=== PATIENT | male | born 1980 | race Caucasian/White ===

== ENCOUNTER 2024-11-09 22:12 | Emergency (ER) | payer OTHER, SELFPAY ==
--- OUTSIDE RECORDS SUMMARY | 2024-11-09 22:14 | XMS REPORT | Continuity of Care Document ---
Author Name Unknown Address [address] [facility] [address] [place] [address] [facility] Address [address] [facility] [address] [place] [address] Care Team Providers Care Outside Sales Representative Insurance Name Role Phone PCP, PATIENT DOES NOT HAVE A Primary Care Physic rima Unavailable Only, Ang Db Test Attending Clinician Unavailabl e Rowan Mondragon Attending Clinician [phone] ROWAN BRODERICK Attending Clinician Unavailab le Doctor Unassigned, [place] Attending Clinician U navailable Allergies, Adverse Reactions, Alerts Allergy Name Allergy Type Status Severity Reaction(s) Onset Date Inactive Date Treating Clinician Comments Source NO KNOWN ALLERGIE S Drug Class Active [facility] Social History Social Habit Start Date Stop Date Quantity Comments Source Exposure to SARS-CoV-2 (event) Yes [facility] Sex Assigned At 1980 00:00:00 1980 00:00:00 [facility] Smoking Status Start Date Stop Date Source Unknown if ever smoked [facility] Procedures Procedure Date / Time Performed Performing Clinicia n Source CONSENT/REFUSAL FOR DIAGNOSIS AND TREATMENT 2021-11-16 22:26:34 Doctor Unassigned, [place] [facility] Encounters Start Date/Time End Date/Time Encounter Type Admission Type Attending Clinicians Care Facility Care Department Encounter ID Source 2021-11-17 10:30:00 2021-11-17 10:30:00 Outpatient R [facility] [id number] [facility] 2021-11-16 20:30:00 2021-11-16 20:45:00 Laboratory Only Only, Ang Db Test Rowan Broderick [facility] 1..[id number] [facility] 2021-11-16 20:30:00 2021-11-16 20:30:00 Outpatient R ROWAN BRODERICK [facility] [id number] [facility] 2021-11-16 00:00:00 2021-11-16 00:00:00 Orders Only Doctor Unassigned, [place] [facility] 1..840.114 [id number] [facility]
[2024-11-09] MEDS ORDERED: LORazepam 2 MG/ML VIAL ONE (22:34)
[2024-11-09] MEDS ORDERED: ONDANSETRON 4 MG/2 ML VIAL ONE (22:35)
--- NOTE | 2024-11-09 22:43 | RAD REPORT ---
EXAMINATION: ONE VIEW CHEST XR CLINICAL INDICATION: Male, 44 years old.,DYSPNEA TECHNIQUE: Frontal chest projection is submitted. Examination is limited by patient positioning and t echnique. COMPARISON: 07/15/2016 FINDINGS: The lungs are well inflated and clear. No pneumothorax or sizable effusion. The heart is normal in s ize. Mediastinal contours are unremarkable. IMPRESSION: No acute intrathoracic abnormalities.
[2024-11-09 22:59] LABS: Absolute Basophils 0.1 K/uL (0-0.5); Absolute Eosinophils 0.4 K/uL (0-0.5); Absolute Lymphocytes (CBC) 3.4 K/uL (0.7-4.9); Absolute Monocytes 0.8 K/uL (0.1-1.3); Absolute Neutrophil 7.2 K/uL (1.8-8.0); Basophils % 0.8 % (0-1.3); Hematocrit 44.7 % (39.6-49.0); Hemoglobin 15.5 g/dL (13.6-17.9); Lymphocytes % 29.1 % (15.3-44.8); MCHC 34.7 g/dL (32.0-36.0); MCV 86.4 fL (80-100); MPV 7.5 fL (7.6-11.3); Monocytes % 6.5 % (3.3-12.3); Neutrophils % 60.6 % (41.7-73.7); Platelets 338 thou/uL (152-406); RBC Red Blood Cell Count 5.17 M/uL (4.33-5.43); Red Cell Distribution Width 14.2 % (12.1-15.2)
[2024-11-09 23:13] LABS: Anion Gap 9.4 mEq/L (5.0-15.0); Troponin High Sensitivity 13.9 pg/mL (<58.9)
[2024-11-09 23:15] LABS: SARS-CoV-2 Antigen CONTROL BLUE LINE VIS/BG OK; SARS-CoV-2 Antigen Rapid Res Negative (Negative)
[2024-11-09 23:16] LABS: Potassium 3.4 mEq/L (3.5-5.1)
[2024-11-09] MEDS ORDERED: DIPHENHYDRAMINE 50 MG/ML VIAL ONE (23:41)
[2024-11-09] MEDS ORDERED: FAMOTIDINE 20 MG/2 ML VIAL IV ONE (23:41)
[2024-11-09] MEDS ORDERED: METHYLPREDNISOLONE 125 MG INJ ONE (23:41)
--- NOTE | 2024-11-10 00:20 | EDPHYS ---
Physician Documentation [facility] Name: Kory Her Age: 44 yrs Sex: Male : 1980 Arrival Date: 11/09/2024 Time: 22:12 Bed 5 Private MD: ED Physician Victor Hugo Márquez HPI: 11/09 23:58 This 44 yrs old Male presents to ER via Ambulatory with complaints of Shortness Of kb Breath, Chest Tightness. 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 Pt is very anxious at time of arrival. States he has a history of hypertension and took his medication this morning as usual. Denies chest pain. and son have the flu. Historical: - Allergies: 22:27 No Known Allergies; br2 - PMHx: 22:27 Atrial Fib; Hypertension; br2 - Immunization history:: Adult Immunizations not up to date. - Infectious Disease History:: Denies. - Social history:: Smoking status: Patient reports the use of cigarette tobacco products, 2 PER DAY. ROS: 23:57 Constitutional: As per HPI kb Exam: 22:50 Head/Face: Normocephalic, atraumatic. ENT: Moist Mucous membranes Cardiovascular: kb Regular rate Respiratory: Respirations even and unlabored. No increased work of breathing. Talking in full sentences Abdomen/GI: Soft, non-tender. No distention Skin: Warm, dry with normal turgor. Normal color. MS/ Extremity: Pulses equal, no cyanosis. Neurovascular intact. Full, normal range of motion. Neuro: Awake and alert, GCS 15, oriented to person, place, time, and situation. 22:50 Constitutional: The patient appears alert, awake, anxious, 22:50 ECG was reviewed by the Attending Physician. Vital Signs: 22:24 BP 195 / 120; Pulse 81; Resp 22; Temp 98.4(TE); Pulse Ox 100% on R/A; Weight 102.06 kg; br2 Height 6 ft. 2 in. ; Pain 0/10; 22:30 BP 143 / 110; Pulse 85; Resp 15; Pulse Ox 100% on R/A; al5 22:45 BP 157 / 92; Pulse 70; Resp 17; Pulse Ox 100% on R/A; al5 23:00 BP 147 / 90; Pulse 71; Resp 16; Pulse Ox 95% on R/A; al5 23:15 BP 153 / 95; Pulse 78; Resp 18; Pulse Ox 97% on R/A; al5 13 00:29 BP 143 / 91; Pulse 81; Resp 16; Pulse Ox 100% on R/A; al5 11/09 22:24 Body Mass Index 28.89 (102.06 kg, 187.96 cm) br2 11/09 22:24 Pain Scale: Adult br2 MDM: 11/09 22:13 Medical Screening Exam initiated kb 23:57 Data reviewed: vital signs, nurses notes. kb 23:58 Differential diagnosis: Anxiety Reaction Myocardial Infarction flu, covid, allergic kb reaction. 23:58 ED course: Pt is more calm, blood pressure improved after ativan. Was able to ask pt kb more questions. He did eat new pizza and some tuna from a deli he hasn't been to before so it is possible that he is having an allergic reaction. States the shortness of breath is better, but he still feels like he has tightness in his throat. . 11/10 00:18 Historians other than the Patient: Parent: father. Counseling: I had a detailed kb discussion with the patient and/or guardian regarding the historical points, exam findings, and any diagnostic results supporting the discharge/admit diagnosis, lab results, radiology results, the need for outpatient follow up, a family practitioner, to return to the emergency department if symptoms worsen or persist or if there are any questions or concerns that arise at home. 00:20 ED course: Symptoms resolved after treatment. kb 11/09 22:19 Order name: Flu; Complete Time: 23:14 kb 11/09 22:19 Order name: SARS-COV-2 Antigen Rapid; Complete Time: 23:21 kb 11/09 22:19 Order name: Strep kb 11/09 22:19 Order name: Basic Metabolic Panel; Complete Time: 23:21 kb 11/09 22:19 Order name: CBC with Diff; Complete Time: 23:05 kb 11/09 22:19 Order name: NT PRO-BNP; Complete Time: 23:21 kb 11/09 22:19 Order name: Troponin HS; Complete Time: 23:21 kb 11/09 22:36 Order name: Glucose, Ancillary Testing; Complete Time: 22:40 EDMS 11/09 23:17 Order name: Throat Culture EDMS 11/09 22:19 Order name: XRAY Chest (1 view); Complete Time: 22:44 kb 11/09 22:19 Order name: Cardiac monitoring; Complete Time: 22:39 kb 11/09 22:19 Order name: EKG - Nurse/Tech; Complete Time: 22:35 kb 11/09 22:19 Order name: IV Saline Lock; Complete Time: 22:31 kb 11/09 22:19 Order name: Labs collected and sent; Complete Time: 22:31 kb 11/09 22:19 Order name: O2 Per Protocol; Complete Time: 22:27 kb 11/09 22:19 Order name: O2 Sat Monitoring; Complete Time: 22:31 kb EC/12 22:50 Rate is 73 beats/min. Rhythm is regular. QRS [place] is Normal. ID interval is normal at kb 184 msec. QRS interval is normal at 98 msec. QT interval is normal at 451 msec. Administered Medications: 22:39 Drug: Ativan IVP 0.5 mg IVP once Route: IVP; Site: right antecubital; al5 23:18 Follow up: Response: No adverse reaction; Anxiety decreased al5 22:39 Drug: Ondansetron IVP 4 mg IVP once; over 2 minutes Route: IVP; Site: right antecubital;al5 23:18 Follow up: Response: No adverse reaction; Nausea is decreased al5 23:52 Drug: diphenhydrAMINE IVP 12.5 mg IVP once Route: IVP; Site: right antecubital; al5 11/10 00:29 Follow up: Response: No adverse reaction; Marked relief of symptoms al5 11/09 23:52 Drug: Famotidine IVP 20 mg IVP once; dilute with 10 mL 0.9% NaCl; give over 2 minutes al5 Route: IVP; Site: right antecubital; 11/10 00:29 Follow up: Response: No adverse reaction; Marked relief of symptoms al5 11/09 23:53 Drug: MethylPrednisoLONE IVP 125 mg IVP once Route: IVP; Site: right antecubital; al5 11/10 00:29 Follow up: Response: No adverse reaction; Marked relief of symptoms al5 Point of Care Testing: Blood Glucose: 11/09 22:27 Blood Glucose: 80 mg/dL; br2 Ranges: Critical Glucose Levels:Adult <50 mg/dl or >400 mg/dl <40 mg/dl or >180 mg/dl Disposition Summary: 11/10/24 00:19 Discharge Ordered Notes: Location: Home kb Condition: Stable kb Diagnosis - Dyspnea kb - Allergic reaction kb Followup: kb - With: Emergency Department - When: As needed - Reason: Worsening of condition Followup: kb - With: Private Physician - When: 2 - 3 days - Reason: Recheck today's complaints, Continuance of care, Re-evaluation by your physician Discharge Instructions: - Discharge Summary Sheet kb - Panic Attack, [id number] kb - Allergies, Adult, [id number] kb Forms: - Medication Reconciliation Form kb - Antibiotic Education kb - Prescription Opioid Use kb - Patient Portal Instructions kb - Leadership Thank You Letter kb Prescriptions: - Hydroxyzine HCl 25 mg Oral tablet - take 1 tablet ORAL route every 8 hours As needed; 12 tablet; Refills: 0, kb Product Selection Permitted - Pepcid 20 mg Oral Tablet - take 1 tablet ORAL route every 12 hours for 5 days; 10 tablet; Refills: 0, kb Product Selection Permitted - Prednisone 20 mg Oral Tablet - take 1 tablet ORAL route once daily for 5 days; 5 tablet; Refills: 0, Product kb Selection Permitted Addendum: 11/17/2024 09:12 I was immediately available for consultation during this patient's visit. I did not e c2 personally see the patient or discuss the patient with the ALICIA. . Signatures: Dispatcher [employer] EDWI Maria Guadalupe Markham, DIRECTOR OF MEDICARE-C DIRECTOR OF MEDICARE-CkKerri Benitez, RICHARD RN lg3 Victor Hugo Márquez MD MD ec2 Roseline Gonzales RN RN al5 Bharati Leo RN RN br2 Corrections: (The following items were deleted from the chart) 11/09 22:20 22:20 Influenza Screen (A \T\ B)+BA.LAB.BRZ ordered. EDWI EDMS 22:20 22:20 SARS-COV-2 Antigen Rapid+I.LAB.BRZ ordered. EDWI EDMS 22:20 22:20 Group A Streptococcus Rapid Sc+BA.LAB.BRZ ordered. EDWI EDMS 22:20 22:20 BASIC METABOLIC PANEL+C.LAB.BRZ ordered. EDMS EDMS 22:20 22:20 CBC+H.LAB.BRZ ordered. EDMS EDMS 22:20 22:20 PROBNP+C.LAB.BRZ ordered. EDMS EDMS 22:20 22:20 Troponin High Sensitivity+C.LAB.BRZ ordered. EDMS EDMS 22:20 22:20 Chest Single View+RAD.RAD.BRZ ordered. EDMS EDMS
--- NOTE | 2024-11-10 00:20 | ER ---
Nurse's Notes [facility] Name: Kory Her Age: 44 yrs Sex: Male : 1980 Arrival Date: 11/09/2024 Time: 22:12 Bed 5 Private MD: Diagnosis: Dyspnea;Allergic reaction Presentation: 11/09 22:24 Chief complaint: Patient states: SOB, COUGH WITH CHEST TIGHTNESS, FEELS LIKE THROAT IS br2 CLOSING UP. PT HAS FAMILY AT HOME WITH THE FLU. PT STATES HE ISN'T ALLERGIC TO ANY FOODS THAT HE IS AWARE OF. Coronavirus screen: Client denies travel out of the [place] in the last 14 days. Ebola Screen: Patient denies exposure to infectious person. Initial Sepsis Screen: Does the patient meet any 2 criteria? No. Patient's initial sepsis screen is negative. Does the patient have a suspected source of infection? No. Patient's initial sepsis screen is negative. Risk Assessment: Do you want to hurt yourself or someone else? Patient reports no desire to harm self or others. Onset of symptoms was November 09, 2024 at 21:00. 22:24 Method Of Arrival: Ambulatory br2 22:24 Acuity: JAMES 3 br2 Triage Assessment: 22:30 Respiratory: Onset: The symptoms/episode began/occurred suddenly, the patient has mild al5 shortness of breath. Historical: - Allergies: 22:27 No Known Allergies; br2 - PMHx: 22:27 Atrial Fib; Hypertension; br2 - Immunization history:: Adult Immunizations not up to date. - Infectious Disease History:: Denies. - Social history:: Smoking status: Patient reports the use of cigarette tobacco products, 2 PER DAY. Screenin:26 [facility] ED Fall Risk Assessment (Adult) History of falling in the last 3 months, al5 including since admission No falls in past 3 months (0 pts) Confusion or Disorientation No (0 pts) Intoxicated or Sedated No (0 pts) Impaired Gait No (0 pts) Mobility Assist Device Used No (0 pt) Altered Elimination No (0 pt) Score/Fall Risk Level 0 - 2 = Low Risk Oriented to surroundings, Maintained a safe environment, Hourly rounding (assess needs \T\ fall precautionary measures) done. Abuse screen: Denies threats or abuse. Denies injuries from another. Nutritional screening: No deficits noted. Tuberculosis screening: No symptoms or risk factors identified. Assessment: 22:26 General: Appears in no apparent distress. Behavior is cooperative, anxious. Pain: al5 Denies pain. Neuro: Level of Consciousness is awake, alert, obeys commands, Oriented to person, place, time, situation. Cardiovascular: Reports having chest pain initially, states he no longer has it, but is short of breath. Respiratory: Airway is patent Respiratory effort is even, Respiratory pattern is regular, symmetrical. Respiratory: Breath sounds are clear bilaterally. GI: Reports nausea. : No signs and/or symptoms were reported regarding the genitourinary system. EENT: No signs and/or symptoms were reported regarding the EENT system. Derm: Skin is intact, is healthy with good turgor, Skin is pink, warm \T\ dry. normal. Musculoskeletal: No signs and/or symptoms reported regarding the musculoskeletal system. 22:56 Cardiovascular: Rhythm is sinus rhythm. al5 11/10 00:29 Reassessment: Patient appears in no apparent distress at this time. Patient and/or al5 family updated on plan of care and expected duration. Pain level reassessed. Patient is alert, oriented x 3, equal unlabored respirations, skin warm/dry/pink. Patient states feeling better. Patient states symptoms have improved. Vital Signs: 11/09 22:24 BP 195 / 120; Pulse 81; Resp 22; Temp 98.4(TE); Pulse Ox 100% on R/A; Weight 102.06 kg; br2 Height 6 ft. 2 in. ; Pain 0/10; 22:30 BP 143 / 110; Pulse 85; Resp 15; Pulse Ox 100% on R/A; al5 22:45 BP 157 / 92; Pulse 70; Resp 17; Pulse Ox 100% on R/A; al5 23:00 BP 147 / 90; Pulse 71; Resp 16; Pulse Ox 95% on R/A; al5 23:15 BP 153 / 95; Pulse 78; Resp 18; Pulse Ox 97% on R/A; al5 11/10 00:29 BP 143 / 91; Pulse 81; Resp 16; Pulse Ox 100% on R/A; al5 11/09 22:24 Body Mass Index 28.89 (102.06 kg, 187.96 cm) br2 11/09 22:24 Pain Scale: Adult br2 ED Course: 11/09 22:12 Patient arrived in ED. ra3 22:13 Maria Guadalupe Markham FNP-C [facility] kb 22:13 Victor Hugo Márquez MD is Attending Physician. kb 22:25 Roseline Gonzales, RICHARD is Primary Nurse. al5 22:25 No provider procedures requiring assistance completed. Inserted saline lock: 20 gauge al5 in right antecubital area, using aseptic technique. Blood collected. Flushed with 10 mL NS. 22:26 Patient has correct armband on for positive identification. Bed in low position. Call al5 light in reach. Side rails up X 1. Provided Education on: plan of care. 22:27 Triage completed. br2 22:30 Patient placed in the treatment room, on a stretcher, on raw silk grader, on pulse al5 oximetry. 22:32 XRAY Chest (1 view) In Process Unspecified. EDMS 23:37 Throat Culture Sent. vk 11/10 00:29 IV discontinued, intact, bleeding controlled, No redness/swelling at site. Pressure al5 dressing applied. Administered Medications: 11/09 22:39 Drug: Ativan IVP 0.5 mg IVP once Route: IVP; Site: right antecubital; al5 23:18 Follow up: Response: No adverse reaction; Anxiety decreased al5 22:39 Drug: Ondansetron IVP 4 mg IVP once; over 2 minutes Route: IVP; Site: right antecubital;al5 23:18 Follow up: Response: No adverse reaction; Nausea is decreased al5 23:52 Drug: diphenhydrAMINE IVP 12.5 mg IVP once Route: IVP; Site: right antecubital; al5 11/10 00:29 Follow up: Response: No adverse reaction; Marked relief of symptoms al5 11/09 23:52 Drug: Famotidine IVP 20 mg IVP once; dilute with 10 mL 0.9% NaCl; give over 2 minutes al5 Route: IVP; Site: right antecubital; 11/10 00:29 Follow up: Response: No adverse reaction; Marked relief of symptoms al5 11/09 23:53 Drug: MethylPrednisoLONE IVP 125 mg IVP once Route: IVP; Site: right antecubital; al5 11/10 00:29 Follow up: Response: No adverse reaction; Marked relief of symptoms al5 Medication: 11/09 22:26 VIS not applicable for this client. al5 Point of Care Testing: Blood Glucose: 22:27 Blood Glucose: 80 mg/dL; br2 Ranges: Outcome: 11/10 00:19 Discharge ordered by . chema 00:30 Discharged to home ambulatory, with family, al5 00:30 Condition: good 00:30 Discharge instructions given to patient, family, Instructed on discharge instructions, follow up and referral plans. medication usage, Demonstrated understanding of instructions, follow-up care, medications, Prescriptions given X 3, 00:30 Patient left the ED. al5 Signatures: Dispatcher [employer] EDMS Maria Guadalupe Markham, LILIA-C CAN MAKER-Marilou Sheppard ra3 Michelle Cano Amanda, RN RN al5 Bharati Leo RN RN br2 Corrections: (The following items were deleted from the chart) 11/09 22:30 22:26 GI: No signs and/or symptoms were reported involving the gastrointestinal system. al5 al5
[2024-11-11 16:23] VITALS: BP 143/91; TEMP 98.4; O2SAT 100
--- NOTE | 2024-11-13 12:09 | EKG ---
Test Date: 2024-11-09 Test Time: 22:32:57 Experimental Assembler: JOSEPH MEASUREMENT RESULTS: Intervals: Rate: 73 [place]: 184 QRSD: 98 QT: 410 QTc: 451 [place]: P: 44 [place]: 184 QRS: 43 T: -2 INTERPRETIVE STATEMENTS: Normal sinus rhythm Nonspecific T wave abnormality Abnormal ECG Compared to ECG 11/12/2017 13:53:20 Possible ischemia no longer present T-wave abnormality still present Electronically Signed On 11-13-24 12:07:30 PV DESIGN ENGINEER by Liam Zuleta
== END 2024-11-10 00:30 | disposition home or self-care (01) ==
LOC: ER 22:12
DX: R06.00 Dyspnea, unspecified (principal); I10 Essential (primary) hypertension; Z72.0 Tobacco use
CPT/HCPCS: 36415; 71045; 80048; 82947; 83880; 84484; 85025; 87070; 87081; 87804; 87811; 93005; 96374; 96375; 99284; J1200; J2405; J2919

== ENCOUNTER 2024-11-22 07:46 | Emergency (ER) | payer SELFPAY ==
--- OUTSIDE RECORDS SUMMARY | 2024-11-22 07:50 | XMS REPORT | Continuity of Care Document ---
Author Name Unknown Address [address] [facility] [address] [place] [address] [facility] thconnect Address [address] [facility] [address] [place] [address] Care Team Providers Care Certified Wellness Program Manager Name Role Phone Pcp, Patient Does Not Have A Primary Care Physic rima ROWAN BRODERICK Attending Clinician Unavailab Rowan Meraz Attending Clinician [phone] Unknown, Attending Attending Clinician Unavailab celsa Only, Ang Db Test Attending Clinician Unavailabl e Rowan Mondragon Attending Clinician [phone] Doctor Unassigned, [place] Attending Clinician U navailable Problems Condition Name Condition Details Condition Category Status Onset Date Resolution Date Last Treatment Date Treating Clinician Comments Source HTN (hypertens ion) HTN (hypertens ion) Disease Active 11-11 00:00: 00 [facility] Allergies, Adverse Reactions, Alerts Allergy Name Allergy Type Status Severity Reaction(s) Onset Date Inactive Date Treating Clinician Comments Source NO KNOWN ALLERGIE S Drug Class Active [facility] Social History Social Habit Start Date Stop Date Quantity Comments Source Sexual orientation U [facility] Exposure to SARS-CoV-2 (event) Yes [facility] Sex assigned at 1980 00:00:00 1980 00:00:00 [facility] Smoking Status Start Date Stop Date Source Tobacco smoking consumption unknown [facility] Medications Ordered Medication Name Filled Medication Name Start Date Stop Date Current Medication? Ordering Clinician Indication Dosage Frequency Signature (SIG) Comments Components Source famotidine (PEPCID ORAL) 11-11 11:05: 22 Yes Take by mouth. [facility] benzonatate 200 mg capsule 11-11 00:00: 00 11-22 05:59 :00 Yes [id number] 200mg Take 1 capsule by mouth 3 (three) times daily as needed for Cough for up to 10 days. [facility] oseltamivir (TAMIFLU) 75 mg capsule 11-11 00:00: 00 11-17 05:59 :00 Yes [id number] 75mg Take 1 capsule by mouth in the morning and 1 capsule in the evening. Do all this for 5 days. [facility] Vital Signs Vital Name Observation Time Observation Value Comments S ource Systolic blood pressure 2024-11-11 16:53:00 146 mm[Hg] [facility] Diastolic blood pressure 2024-11-11 16:53:00 93 mm[Hg] [facility] Heart rate 2024-11-11 16:52:00 96 /min [facility] Body temperature 2024-11-11 16:52:00 38.17 Iva [facility] Respiratory rate 2024-11-11 16:52:00 18 /min [facility] Body height 2024-11-11 16:52:[address] [facility] Body weight 2024-11-11 16:52:[address] [facility] BMI 2024-11-11 16:52:00 30.65 kg/m2 [facility] Oxygen saturation in Arterial blood by Pulse oximetry 2024-11-11 16:52:00 99 /min [facility] Procedures Procedure Date / Time Performed Performing Clinicia n Source POCT MOLECULAR FLU 2024-11-11 16:52:00 Unknown, Attend ing [facility] CONSENT/REFUSAL FOR DIAGNOSIS AND TREATMENT 2021-11-16 22:26:34 Doctor Unassigned, [place] [facility] Encounters Start Date/Time End Date/Time Encounter Type Admission Type Attending [facility] Care Facility Care Department Encounter ID Source 2024-11-11 09:40:00 2024-11-11 11:11:22 Outpatient R ROWAN BRODERICK [facility] [id number] [facility] 2024-11-11 09:40:00 2024-11-11 11:11:22 Urgent Care Rowan Broderick Unknown, Attending [facility] [id number] [facility] 2021-11-17 10:30:00 2021-11-17 10:30:00 [facility] [id number] [facility] 2021-11-16 20:30:00 2021-11-16 20:45:00 Laboratory Only Only, Ang Db Test Rowan Broderick [facility] [id number] [facility] 2021-11-16 20:30:00 2021-11-16 20:30:00 Outpatient R ROWAN BRODERICK [facility] [id number] [facility] 2021-11-16 00:00:00 2021-11-16 00:00:00 Orders Only Doctor Unassigned, [place] [facility] [id number] [facility] Results Test Description Test Time Test Comments Results Result Co mments Source [facility]
[2024-11-22] MEDS ORDERED: MAGNES/ALUMIN/SIMET 30ML UCUP ONE (08:16)
[2024-11-22] MEDS ORDERED: DICYCLOMINE HCL 20 MG/2 ML AMP IM ONE (08:16)
[2024-11-22] MEDS ORDERED: ONDANSETRON 4 MG/2 ML VIAL ONE (08:16)
[2024-11-22] MEDS ORDERED: NA CHLORIDE 0.9% 1,000 ML ONE (08:17)
[2024-11-22] MEDS ORDERED: LIDOCAINE VISCOUS 2% 10ML ORAL SOLN ONE (08:17)
[2024-11-22] MEDS ORDERED: FAMOTIDINE 20 MG/2 ML VIAL IV ONE (08:17)
[2024-11-22 09:02] LABS: Absolute Basophils 0.1 K/uL (0-0.5); Absolute Eosinophils 0.2 K/uL (0-0.5); Absolute Lymphocytes (CBC) 2.6 K/uL (0.7-4.9); Absolute Monocytes 0.5 K/uL (0.1-1.3); Absolute Neutrophil 6.8 K/uL (1.8-8.0); Basophils % 0.5 % (0-1.3); Eosinophils % 2.1 % (0-4.4); Hematocrit 45.6 % (39.6-49.0); Hemoglobin 16.2 g/dL (13.6-17.9); Lymphocytes % 25.8 % (15.3-44.8); MCH 29.9 pg (27.0-35.0); MCHC 35.5 g/dL (32.0-36.0); MCV 84.2 fL (80-100); MPV 7.4 fL (7.6-11.3); Monocytes % 5.2 % (3.3-12.3); Neutrophils % 66.4 % (41.7-73.7); Nucleated Red Blood Cells % 0.1 % (0-0); Platelets 371 thou/uL (152-406); RBC Red Blood Cell Count 5.41 M/uL (4.33-5.43); Red Cell Distribution Width 14.2 % (12.1-15.2)
[2024-11-22 09:28] LABS: Albumin/Globulin Ratio 1.1 (1.1-1.8); Anion Gap 8.4 mEq/L (5.0-15.0); Bilirubin Total 1.1 mg/dL (0.2-1.0); Globulin 3.7 g/dL (2.3-3.5); Potassium 3.4 mEq/L (3.5-5.1); Protein, Total 7.7 g/dL (6.4-8.2)
--- NOTE | 2024-11-22 09:37 | ER ---
Nurse's Notes [facility] Name: Kory Her Age: 44 yrs Sex: Male : 1980 Arrival Date: 11/22/2024 Time: 07:46 Bed 7 Private MD: Diagnosis: Influenza;Viral syndrome;Nausea and vomiting Presentation: 11/22 08:05 Chief complaint: N/D, fever, cough, and congestion x 2 weeks, upper abdominal pain x 3 hb days. Diagnosed with flu A 10 days ago. Coronavirus screen: At this time, the client does not indicate any symptoms associated with coronavirus-19. Ebola Screen: No symptoms or risks identified at this time. Initial Sepsis Screen: Does the patient meet any 2 criteria? No. Patient's initial sepsis screen is negative. Does the patient have a suspected source of infection? No. Patient's initial sepsis screen is negative. Risk Assessment: Do you want to hurt yourself or someone else? Patient reports no desire to harm self or others. Onset of symptoms was November 08, 2024. 08:05 Method Of Arrival: Ambulatory hb 08:05 Acuity: JAMES 3 hb Historical: - Allergies: 08:07 No Known Allergies; hb - PMHx: 08:07 Atrial Fib; Hypertension; hb - Immunization history:: Adult Immunizations up to date. - Infectious Disease History:: Denies. - Social history:: Smoking status: Patient/guardian denies using tobacco, Stopped _ months ago 1. - Family history:: not pertinent. Screenin:29 [facility] ED Fall Risk Assessment (Adult) History of falling in the last 3 months, ko1 including since admission No falls in past 3 months (0 pts) Confusion or Disorientation No (0 pts) Intoxicated or Sedated No (0 pts) Impaired Gait No (0 pts) Mobility Assist Device Used No (0 pt) Altered Elimination No (0 pt) Score/Fall Risk Level 0 - 2 = Low Risk Oriented to surroundings, Maintained a safe environment, Educated pt \T\ family on fall prevention, incl call for assistance when getting out of bed, Assessed \T\ reinforced patient's understanding of fall precautions, Provided non-skid footwear, Hourly rounding (assess needs \T\ fall precautionary measures) done. Abuse screen: Denies threats or abuse. Denies injuries from another. Nutritional screening: No deficits noted. Tuberculosis screening: No symptoms or risk factors identified. Assessment: 08:29 General: Appears uncomfortable, Behavior is cooperative, appropriate for age. Pain: ko1 Complains of pain in abdomen. Neuro: No deficits noted. Cardiovascular: No deficits noted. Respiratory: No deficits noted. GI: Bowel sounds present X 4 quads. Abd is soft and non tender X 4 quads. Reports lower abdominal pain, bloating, diarrhea, gaseousness, indigestion, nausea. : No deficits noted. No signs and/or symptoms were reported regarding the genitourinary system. EENT: No deficits noted. No signs and/or symptoms were reported regarding the EENT system. Derm: No deficits noted. No signs and/or symptoms reported regarding the dermatologic system. Musculoskeletal: No deficits noted. No signs and/or symptoms reported regarding the musculoskeletal system. Vital Signs: 08:05 BP 184 / 109; Pulse 76; Resp 18; Temp 98(O); Pulse Ox 97% on R/A; Weight 104.33 kg; hb Height 6 ft. 2 in. ; Pain 6/10; 09:21 BP 149 / 100; Pulse 56; Resp 17; Pulse Ox 96% ; ko1 09:36 BP 152 / 98; Pulse 56; Resp 15; Pulse Ox 99% on R/A; ko1 08:05 Body Mass Index 29.53 (104.33 kg, 187.96 cm) hb 08:05 Pain Scale: Adult hb ED Course: 07:50 Patient arrived in ED. mr 07:53 Jeremy Arriola MD is Attending Physician. rt 08:02 Sarah Farr, RN is Primary Nurse. ko1 08:07 Triage completed. hb 08:07 Arm band placed on. hb 08:19 Initial lab(s) drawn, by me, sent to lab. Inserted saline lock: 20 gauge in right aa5 antecubital area, using aseptic technique. Blood collected. Flushed with 10 mL NS. 08:29 Patient has correct armband on for positive identification. Bed in low position. Call ko1 light in reach. Side rails up X 1. Provided Education on: labs, meds. Pulse ox on. NIBP on. Door closed. Noise minimized. Lights dimmed. Warm blanket given. Pillow given. 08:29 No provider procedures requiring assistance completed. ko1 09:27 Patient requests rest room assistance. ko1 09:27 Assisted with urinal. ko1 09:35 IV discontinued, intact, bleeding controlled, No redness/swelling at site. Pressure ko1 dressing applied. Administered Medications: 08:27 Drug: NS 0.9% IV 1000 ml IV at 1000 ml once; to be given as a bolus over 60 minutes ko1 Route: IV; Rate: 1000 ml; Site: right antecubital; 09:20 Follow up: Response: No adverse reaction; IV Status: Completed infusion; IV Intake: ko1 1000ml 08:27 Drug: Ondansetron IVP 4 mg IVP once; over 2 minutes Route: IVP; Site: right antecubital;ko1 08:42 Follow up: Response: No adverse reaction ko1 08:27 Drug: Dicyclomine IM 20 mg IM once Route: IM; Site: right deltoid; ko1 08:57 Follow up: Response: No adverse reaction ko1 08:28 Drug: GI Cocktail without - (Maalox PO 30 ml, Lidocaine Mucous Membrane 2 % 15 ko1 ml) PO once Route: PO; 08:58 Follow up: Response: No adverse reaction ko1 08:29 Drug: Famotidine IVP 20 mg IVP once; dilute with 10 mL 0.9% NaCl; give over 2 minutes ko1 Route: IVP; Site: right antecubital; 08:44 Follow up: Response: No adverse reaction ko1 Medication: 08:29 VIS not applicable for this client. ko1 Intake: 09:20 IV: 1000ml; Total: 1000ml. ko1 09:36 PO: 120ml (Water); IV: 1000ml; Total: 2120ml. ko1 Output: 09:36 Urine: 750ml (Voided); Total: 750ml. ko1 Outcome: 09:36 Discharge ordered by MD. rt 09:36 Discharged to home ambulatory, with family, ko1 09:36 Condition: stable 09:36 Discharge instructions given to patient, family, Instructed on discharge instructions, follow up and referral plans. medication usage, Demonstrated understanding of instructions, follow-up care, medications, Prescriptions given X 2, 09:44 Patient left the ED. ko1 Signatures: Domenica Yao, Reg Reg mr Jeannine Gallo, RN RN aa5 Evita Mireles RN RN Sarah Mendoza, RICHARD RN ko1 Jeremy Arriola MD MD rt
--- NOTE | 2024-11-22 09:37 | EDPHYS ---
Physician Documentation [facility] Name: Kory Her Age: 44 yrs Sex: Male : 1980 Arrival Date: 11/22/2024 Time: 07:46 Bed 7 Private MD: ED Physician Jeremy Arriola HPI: 11/22 10:21 This 44 yrs old Male presents to ER via Ambulatory with complaints of Abdominal Pain, rt Diarrhea, Dizziness. 10:21 Patient was diagnosed with flu a about 10 days ago. Patient states that for the past rt week, he has had nausea, vomiting, diarrhea, epigastric pain. Denies other acute complaints at this time, symptoms are moderate in severity, no other aggravating or alleviating factors.. Historical: - Allergies: 08:07 No Known Allergies; hb - PMHx: 08:07 Atrial Fib; Hypertension; hb - Immunization history:: Adult Immunizations up to date. - Infectious Disease History:: Denies. - Social history:: Smoking status: Patient/guardian denies using tobacco, Stopped _ months ago 1. - Family history:: not pertinent. ROS: 10:21 Cardiovascular: Negative for chest pain, palpitations, and edema, MS/Extremity: rt Negative for injury and deformity, Skin: Negative for injury, rash, and discoloration, Neuro: Negative for headache, weakness, numbness, tingling, and seizure, 10:21 Constitutional: Positive for body aches, malaise, 10:21 Respiratory: Positive for cough, Negative for shortness of breath, 10:21 Abdomen/GI: Positive for nausea, vomiting, and diarrhea, Exam: 10:21 Constitutional: This is a well developed, well nourished patient who is awake, alert, rt and in no acute distress. Head/Face: Normocephalic, atraumatic. Chest/axilla: Normal chest wall appearance and motion. Nontender with no deformity. No lesions are appreciated. Cardiovascular: Regular rate and rhythm with a normal S1 and S2. No gallops, murmurs, or rubs. Normal PMI, no JVD. No pulse deficits. Respiratory: Lungs have equal breath sounds bilaterally, clear to auscultation and percussion. No rales, rhonchi or wheezes noted. No increased work of breathing, no retractions or nasal flaring. MS/ Extremity: Pulses equal, no cyanosis. Neurovascular intact. Full, normal range of motion. Neuro: Awake and alert, GCS 15, oriented to person, place, time, and situation. Cranial nerves II-XII grossly intact. Motor strength 5/5 in all extremities. Sensory grossly intact. Cerebellar exam normal. Normal gait. 10:21 Abdomen/GI: No focal areas of abdominal tenderness, no rebound, guarding, distention, Vital Signs: 08:05 BP 184 / 109; Pulse 76; Resp 18; Temp 98(O); Pulse Ox 97% on R/A; Weight 104.33 kg; hb Height 6 ft. 2 in. ; Pain 6/10; 09:21 BP 149 / 100; Pulse 56; Resp 17; Pulse Ox 96% ; ko1 09:36 BP 152 / 98; Pulse 56; Resp 15; Pulse Ox 99% on R/A; ko1 08:05 Body Mass Index 29.53 (104.33 kg, 187.96 cm) hb 08:05 Pain Scale: Adult hb MDM: 08:05 Medical Screening Exam initiated rt 10:21 Differential diagnosis: Viral syndrome, gastritis. Data reviewed: vital signs, nurses rt notes, lab test result(s). I considered the following discharge prescriptions or medication management in the emergency department Medications were administered in the Emergency Department. See MAR. Test considered but Not performed: CT: No focal areas of abdominal tenderness or distention, symptoms significantly improving with treatment in the ED, low suspicion for acute surgical pathology such as appendicitis, cholecystitis, CT scan is not indicated. Care significantly affected by the following chronic conditions: Hypertension. Counseling: I had a detailed discussion with the patient and/or guardian regarding the historical points, exam findings, and any diagnostic results supporting the discharge/admit diagnosis, lab results, radiology results, the need for outpatient follow up, to return to the emergency department if symptoms worsen or persist or if there are any questions or concerns that arise at home. Response to treatment: the patient's symptoms have markedly improved after treatment. 11/22 08:13 Order name: CBC with Diff; Complete Time: rt 11/22 08:13 Order name: CMP; Complete Time: rt 11/22 08:13 Order name: Lipase; Complete Time: rt Administered Medications: : Drug: NS 0.9% IV 1000 ml IV at 1000 ml once; to be given as a bolus over 60 minutes ko1 Route: IV; Rate: 1000 ml; Site: right antecubital; 09:20 Follow up: Response: No adverse reaction; IV Status: Completed infusion; IV Intake: ko1 1000ml 08:27 Drug: Ondansetron IVP 4 mg IVP once; over 2 minutes Route: IVP; Site: right antecubital;ko1 08:42 Follow up: Response: No adverse reaction ko1 08:27 Drug: Dicyclomine IM 20 mg IM once Route: IM; Site: right deltoid; ko1 08:57 Follow up: Response: No adverse reaction ko1 08:28 Drug: GI Cocktail without - (Maalox PO 30 ml, Lidocaine Mucous Membrane 2 % 15 ko1 ml) PO once Route: PO; 08:58 Follow up: Response: No adverse reaction ko1 08:29 Drug: Famotidine IVP 20 mg IVP once; dilute with 10 mL 0.9% NaCl; give over 2 minutes ko1 Route: IVP; Site: right antecubital; 08:44 Follow up: Response: No adverse reaction ko1 Disposition Summary: 11/22/24 09:36 Discharge Ordered Notes: Location: Home rt Problem: new rt Symptoms: have improved rt Condition: Stable rt Diagnosis - Influenza rt - Viral syndrome rt - Nausea and vomiting rt Followup: rt - With: Private Physician - When: 2 - 3 days - Reason: Discharge Instructions: - Discharge Summary Sheet rt - Influenza, Adult rt - Nausea and Vomiting, Adult rt Forms: - Medication Reconciliation Form rt - Antibiotic Education rt - Prescription Opioid Use rt - Patient Portal Instructions rt - Leadership Thank You Letter rt Prescriptions: - ondansetron 4 mg Oral Tablet,disintegrating - take 1 tablet ORAL route every 6 hours as needed for nausea; 15 tablet; rt Refills: 0, Product Selection Permitted - dicyclomine 20 mg Oral tablet - take 1 tablet ORAL route 3 times per day as needed; 15 tablet; Refills: 0, rt Product Selection Permitted Signatures: Dispatcher [employer] Evita Jimenez RN RN hb Oliver, Kathy, RN RN ko1 Jeremy Arriola MD MD rt
[2024-11-22 10:02] VITALS: TEMP 98
[2024-11-22 10:09] VITALS: BP 152/98; O2SAT 99
== END 2024-11-22 09:44 | disposition home or self-care (01) ==
LOC: ER 07:46
DX: J11.1 Influenza due to unidentified influenza virus with other respiratory manifestations (principal)
CPT/HCPCS: 36415; 80053; 83690; 85025; 96361; 96372; 96374; 96375; 99284; J0500; J2405; J7030

== ENCOUNTER 2024-11-24 12:21 | Inpatient (IN) | payer SELFPAY ==
--- OUTSIDE RECORDS SUMMARY | 2024-11-24 12:24 | XMS REPORT | Continuity of Care Document ---
Author Name Unknown Address [address] [place] [address] [facility] thconnect Address [address] [place] [address] Care Team Providers Care Oracle Soa Architect Name Role Phone PCP, PATIENT DOES NOT HAVE A Primary Care Physic rima Unavailable ROWAN BRODERICK Attending Clinician UnavailRowan Banks Attending Clinician + [phone] Unknown, Attending Attending Clinician Unavailab steen Only, Ang Db Test Attending Clinician Unavailabl e Rowan Mondragon Attending Clinician [phone] Doctor Unassigned, [place] Attending Clinician U navailable Problems Condition Name Condition Details Condition Category Status Onset Date Resolution Date Last Treatment Date Treating Clinician Comments Source HTN (hypertens ion) HTN (hypertens ion) Disease Active 11-11 00:00: 00 [facility] Allergies, Adverse Reactions, Alerts Allergy Name Allergy Type Status Severity Reaction(s) Onset Date Inactive Date Treating Clinician Comments Source NO KNOWN ALLERGIE S Drug Class Active [facility] Social History Social Habit Start Date Stop Date Quantity Comments Source Exposure to SARS-CoV-2 (event) Yes [facility] Sexual orientation U [facility] Sex assigned at 1980 00:00:00 1980 00:00:00 [facility] Smoking Status Start Date Stop Date Source Tobacco smoking consumption unknown [facility] Medications Ordered Medication Name Filled Medication Name Start Date Stop Date Current Medication? Ordering Clinician Indication Dosage Frequency Signature (SIG) Comments Components Source famotidine (PEPCID ORAL) 11-11 11:05: 22 Yes Take by mouth. [facility] benzonatate 200 mg capsule 11-11 00:00: 00 11-22 05:59 :00 Yes [id number] 200mg Take 1 capsule by mouth 3 (three) times daily as needed for Cough for up to 10 days. [facility] oseltamivir (TAMIFLU) 75 mg capsule 11-11 00:00: 00 11-17 05:59 :00 Yes [id number] 75mg Take 1 capsule by mouth in the morning and 1 capsule in the evening. Do all this for 5 days. [facility] Vital Signs Vital Name Observation Time Observation Value Comments S ource Systolic blood pressure 2024-11-11 16:53:00 146 mm[Hg] [facility] Diastolic blood pressure 2024-11-11 16:53:00 93 mm[Hg] [facility] Heart rate 2024-11-11 16:52:00 96 /min [facility] Body temperature 2024-11-11 16:52:00 38.17 Iva [facility] Respiratory rate 2024-11-11 16:52:00 18 /min [facility] Body height 2024-11-11 16:52:00 188 cm [facility] Body weight 2024-11-11 16:52:00 108.274 kg [facility] BMI 2024-11-11 16:52:00 30.65 kg/m2 [facility] Oxygen saturation in Arterial blood by Pulse oximetry 2024-11-11 16:52:00 99 /min [facility] Procedures Procedure Date / Time Performed Performing Clinicia n Source POCT MOLECULAR FLU 2024-11-11 16:52:00 Unknown, Attend ing [facility] CONSENT/REFUSAL FOR DIAGNOSIS AND TREATMENT 2021-11-16 22:26:34 Doctor Unassigned, [place] [facility] Encounters Start Date/Time End Date/Time Encounter Type Admission Type Attending [facility] Care Facility Care Department Encounter ID Source 2024-11-11 09:40:00 2024-11-11 11:11:22 Outpatient R ROWAN BRODERICK [facility] [id number] [facility] 2024-11-11 09:40:00 2024-11-11 11:11:22 Urgent Care Rowan Broderick Unknown, Attending [facility] [id number] [facility] 2021-11-17 10:30:00 2021-11-17 10:30:00 Outpatient R [facility] [id number] [facility] 2021-11-16 20:30:00 2021-11-16 20:45:00 Laboratory Only Only, Ang Db Test Rowan Broderick [facility] [id number] [facility] 2021-11-16 20:30:00 2021-11-16 20:30:00 Outpatient R ROWAN BRODERICK [facility] [id number] [facility] 2021-11-16 00:00:00 2021-11-16 00:00:00 Orders Only Doctor Unassigned, [place] [facility] [id number] [facility] Results Test Description Test Time Test Comments Results Result Co mments Source [facility]
[2024-11-24] MEDS ORDERED: ASPIRIN 81 MG CHEWABLE TABLET ONE (12:35)
[2024-11-24 13:08] LABS: Absolute Basophils 0.1 K/uL (0-0.5); Absolute Eosinophils 0.1 K/uL (0-0.5); Absolute Lymphocytes (CBC) 2.4 K/uL (0.7-4.9); Absolute Monocytes 0.6 K/uL (0.1-1.3); Absolute Neutrophil 10.5 K/uL (1.8-8.0); Basophils % 0.7 % (0-1.3); Eosinophils % 0.6 % (0-4.4); Hematocrit 43.6 % (39.6-49.0); Hemoglobin 15.1 g/dL (13.6-17.9); Lymphocytes % 17.7 % (15.3-44.8); MCHC 34.7 g/dL (32.0-36.0); MCV 83.5 fL (80-100); MPV 7.1 fL (7.6-11.3); Monocytes % 4.5 % (3.3-12.3); Neutrophils % 76.5 % (41.7-73.7); Platelets 381 thou/uL (152-406); RBC Red Blood Cell Count 5.22 M/uL (4.33-5.43); Red Cell Distribution Width 14.3 % (12.1-15.2)
--- NOTE | 2024-11-24 13:09 | RAD REPORT ---
Procedure: Chest Single View HISTORY: Cough COMPARISON: November 09, 2024 FINDINGS: The lungs appear clear of acute infiltrate. No significant pleural effusion noted. The heart is normal size. IMPRESSION: No acute abnormality is displayed.
[2024-11-24 13:13] LABS: PT Prothrombin Time 12.5 SECONDS (9.4-12.5); Protime INR 1.19
[2024-11-24 13:26] LABS: Albumin 3.7 g/dL (3.4-5.0); Anion Gap 11.3 mEq/L (5.0-15.0); Bilirubin Direct 0.3 mg/dL (0-0.2); Bilirubin Indirect, Calculated 0.9 mg/dL (0.2-0.8); Bilirubin Total 1.2 mg/dL (0.2-1.0); Globulin 3.8 g/dL (2.3-3.5); Magnesium 2.2 mg/dL (1.6-2.4); Potassium 3.3 mEq/L (3.5-5.1); Protein, Total 7.5 g/dL (6.4-8.2); Troponin High Sensitivity 10.3 pg/mL (<58.9)
--- NOTE | 2024-11-24 14:03 | EDPHYS ---
Physician Documentation [facility] Name: Kory Her Age: 44 yrs Sex: Male : 1980 Arrival Date: 11/24/2024 Time: 12:21 Bed 6 Private MD: TONO Physician Igor Hill HPI: 11/24 13:52 This 44 yrs old Male presents to ER via Wheelchair with complaints of Chest dave Tightness. 13:52 The patient or guardian reports chest pain that is located primarily in the anterior dave chest wall. Onset: 2 day(s) ago. The pain does not radiate. Associated signs and symptoms: The patient has no apparent associated signs or symptoms. The chest pain is described as aching, a pressure. Duration: The patient or guardian reports multiple episodes, that are intermittent. Modifying factors: The symptoms are alleviated by nothing. the symptoms are aggravated by nothing. Severity of pain: At its worst the pain was moderate in the emergency department the pain has improved mildly. The patient has experienced similar episodes in the past, multiple times. Historical: - Allergies: 12:33 No Known Allergies; ap3 - PMHx: 12:33 Atrial Fib; Hypertension; ap3 - Immunization history:: Client reports having NOT received the Covid vaccine. Flu vaccine is not up to date. - Infectious Disease History:: Denies. - Social history:: Smoking status: Patient/guardian denies using tobacco, Stopped _ months ago 1. - Family history:: not pertinent. ROS: 13:52 Constitutional: Negative for fever, chills, and weight loss, Eyes: Negative for injury, dave pain, redness, and discharge, ENT: Negative for injury, pain, and discharge, Neck: Negative for injury, pain, and swelling, Respiratory: Negative for shortness of breath, cough, wheezing, and pleuritic chest pain, Back: Negative for injury and pain, : Negative for injury, bleeding, discharge, and swelling, MS/Extremity: Negative for injury and deformity, Skin: Negative for injury, rash, and discoloration, Neuro: Negative for headache, weakness, numbness, tingling, and seizure, Psych: Negative for depression, anxiety, suicide ideation, homicidal ideation, and hallucinations, Allergy/Immunology: Negative for hives, rash, and allergies, Endocrine: Negative for neck swelling, polydipsia, polyuria, polyphagia, and marked weight changes, Hematologic/Lymphatic: Negative for swollen nodes, abnormal bleeding, and unusual bruising, 13:52 Cardiovascular: Positive for chest pain, 13:52 Abdomen/GI: Positive for abdominal pain, abdominal cramps, abdominal distension, of the right upper quadrant, left upper quadrant, right lower quadrant and left lower quadrant, Exam: 13:52 Constitutional: This is a well developed, well nourished patient who is awake, alert, dave and in no acute distress. Head/Face: Normocephalic, atraumatic. Eyes: Pupils equal round and reactive to light, extra-ocular motions intact. Lids and lashes normal. Conjunctiva and sclera are non-icteric and not injected. Cornea within normal limits. Periorbital areas with no swelling, redness, or edema. ENT: Nares patent. No nasal discharge, no septal abnormalities noted. Tympanic membranes are normal and external auditory canals are clear. Oropharynx with no redness, swelling, or masses, exudates, or evidence of obstruction, uvula midline. Mucous membranes moist. Neck: Trachea midline, no thyromegaly or masses palpated, and no cervical lymphadenopathy. Supple, full range of motion without nuchal rigidity, or vertebral point tenderness. No Meningismus. Chest/axilla: Normal chest wall appearance and motion. Nontender with no deformity. No lesions are appreciated. Cardiovascular: Regular rate and rhythm with a normal S1 and S2. No gallops, murmurs, or rubs. Normal PMI, no JVD. No pulse deficits. Respiratory: Lungs have equal breath sounds bilaterally, clear to auscultation and percussion. No rales, rhonchi or wheezes noted. No increased work of breathing, no retractions or nasal flaring. Abdomen/GI: Soft, non-tender, with normal bowel sounds. No distension or tympany. No guarding or rebound. No evidence of tenderness throughout. Back: No spinal tenderness. No costovertebral tenderness. Full range of motion. Skin: Warm, dry with normal turgor. Normal color with no rashes, no lesions, and no evidence of cellulitis. MS/ Extremity: Pulses equal, no cyanosis. Neurovascular intact. Full, normal range of motion., bilateral aka Neuro: Awake and alert, GCS 15, oriented to person, place, time, and situation. Cranial nerves II-XII grossly intact. Motor strength 5/5 in all extremities. Sensory grossly intact. Cerebellar exam normal. Normal gait. Psych: Awake, alert, with orientation to person, place and time. Behavior, mood, and affect are within normal limits. 13:52 ECG was reviewed by the Attending Physician. 13:57 Musculoskeletal/extremity: DVT Exam: No signs of deep vein thrombosis. no pain, no dave swelling, no tenderness, negative Homans' sign noted on exam, no appreciated bluish discoloration, no erythema, no increased warmth, Vital Signs: 12:34 BP 168 / 108; Pulse 88; Resp 19; Pulse Ox 100% on R/A; Weight 104.33 kg; Height 6 ft. 2 ap3 in. ; Pain 10/10; 12:34 Temp 98(O); ap3 13:06 BP 153 / 91; Pulse 74; Resp 18; Pulse Ox 99% on R/A; ph 14:00 BP 155 / 91; Pulse 72; Resp 18; Pulse Ox 97% on R/A; ph 15:00 BP 145 / 91; Pulse 68; Resp 18; Pulse Ox 98% on R/A; ph 15:54 BP 147 / 90; Pulse 66; Resp 18; Pulse Ox 96% on R/A; ph 19:15 BP 130 / 84; Pulse 68; Resp 18; Pulse Ox 98% on R/A; Pain 0/10; br2 12:34 Body Mass Index 29.53 (104.33 kg, 187.96 cm) ap3 12:34 Pain Scale: Adult ap3 19:15 Pain Scale: Adult br2 MDM: 12:28 Medical Screening Exam initiated [facility] 13:57 Differential diagnosis: abnormal EKG, acute myocardial infarction, acute pericarditis, dave anxiety, coronary artery disease chest wall pain, Cholelithiasis costochondritis, esophagitis, gastritis, hiatal hernia, pancreatitis, peptic ulcer disease, pericarditis, stable angina, thoracic aortic disection, unstable angina. HEART Score: History: Moderately Suspicious (1), ECG: Non specific repolarization disturbance / LBTB / PM (1), Age: > 45 and < 65 years (1), Risk Factors: > or = 3 Risk factors for atherosclerotic disease (2), [Hypercholesterolemia] [Hypertension] [+ Family HX] [Obesity] Troponin: < or = 1 x Normal Limit (0), Total Score = 4. The patient was given aspirin in the Emergency Department. ADAMA Risk Score: 1 - Three or more CAD risk factors, TOTAL SCORE = 1. Data reviewed: vital signs, nurses notes, lab test result(s), EKG, radiologic studies, CT scan, plain films, ultrasound. Consideration of Admission/Observation Patient was admitted/placed on observation. Escalation of care including admission/observation considered. I considered the following discharge prescriptions or medication management in the emergency department Medications were administered in the Emergency Department. See MAR. Independent interpretation of the following test(s) in the Emergency Department EKG: See my EKG interpretation above. Test considered but Not performed: MRI: NO MRCP. Historians other than the Patient: Parent: DAD WELL INFORMED. Care significantly affected by the following chronic conditions: Hypertension, Obesity. 11/24 12:29 Order name: Basic Metabolic Panel; Complete Time: 13:40 [facility] 11/24 12:29 Order name: CBC with Diff; Complete Time: 13:40 [facility] 11/24 12:29 Order name: LFT's; Complete Time: 13:40 [facility] 11/24 12:29 Order name: Magnesium; Complete Time: 13:40 [facility] 11/24 12:29 Order name: NT PRO-BNP; Complete Time: 13:40 [facility] 11/24 12:29 Order name: PT-INR; Complete Time: 13:40 [facility] 11/24 12:29 Order name: Troponin HS; Complete Time: 13:40 [facility] 11/24 12:29 Order name: Urinalysis w/ reflexes; Complete Time: 20:34 [facility] 11/24 12:29 Order name: Lipase; Complete Time: 13:40 [facility] 11/24 15:16 Order name: Urine Drug Screen [facility] 11/24 15:16 Order name: T4 Free [facility] 11/24 15:16 Order name: Thyroid Stimulating Hormone [facility] 11/24 15:16 Order name: Basic Metabolic Panel [facility] 11/24 15:16 Order name: Basic Metabolic Panel [facility] 11/24 15:16 Order name: Basic Metabolic Panel [facility] 11/24 15:16 Order name: Basic Metabolic Panel [facility] 11/24 15:16 Order name: CBC with Automated Diff [facility] 11/24 15:16 Order name: CBC with Automated Diff [facility] 11/24 15:16 Order name: CBC with Automated Diff [facility] 11/24 15:16 Order name: CBC with Automated Diff [facility] 11/24 15:16 Order name: Lipid Profile [facility] 11/24 15:16 Order name: Lipid Profile [facility] 11/24 15:16 Order name: Magnesium EDMS 11/24 15:16 Order name: Magnesium EDMS 11/24 15:16 Order name: Magnesium EDMS 11/24 15:16 Order name: Magnesium EDMS 11/24 15:16 Order name: Phosphorus EDMS 11/24 15:16 Order name: Phosphorus EDMS 11/24 15:16 Order name: Phosphorus EDMS 11/24 15:16 Order name: Phosphorus EDMS 11/24 15:16 Order name: Troponin High Sensitivity EDMS 11/24 15:16 Order name: Troponin High Sensitivity EDMS 11/24 15:16 Order name: Troponin High Sensitivity EDMS 11/24 15:17 Order name: Urine Drug Screen; Complete Time: 20:34 bp 11/24 12:29 Order name: XRAY Chest (1 view); Complete Time: 13:40 dave 11/24 13:51 Order name: US Abdomen Limited; Complete Time: 20:34 dave 11/24 14:18 Order name: Chest Abd Pelvis Wo Con; Complete Time: 20:34 EDMS 11/24 12:29 Order name: EKG; Complete Time: 12:29 dave 11/24 12:29 Order name: Cardiac monitoring; Complete Time: 12:46 dave 11/24 12:29 Order name: EKG - Nurse/Tech; Complete Time: 12:36 dave 11/24 12:29 Order name: IV Saline Lock; Complete Time: 12:58 dave 11/24 12:29 Order name: Labs collected and sent; Complete Time: 12:58 dave 11/24 12:29 Order name: O2 Per Protocol; Complete Time: 12:38 dave 11/24 12:29 Order name: O2 Sat Monitoring; Complete Time: 12:38 dave 11/24 13:51 Order name: PO challenge; Complete Time: 15:56 dave EC:52 Rate is 82 beats/min. Rhythm is regular. QRS [place] is Normal. AR interval is normal. QRS dave interval is normal. QT interval is normal. No Q waves. T waves are Inverted in leads II, III, aVF, V4, V5, V6. No ST changes noted. Clinical impression: NSR w/ Non-specific ST/T Changes. Interpreted by me. Reviewed by me. Administered Medications: 12:47 Drug: Aspirin PO Chewable Tablet 324 mg PO once; 81 mg tablets x 4 Route: PO; ph 15:56 Follow up: Response: No adverse reaction ph 16:45 Drug: Potassium PO Effervescent Tablet 25 mEq PO once; dissolve in 4 ounces of water or ph juice Route: PO; 17:00 Follow up: Response: No adverse reaction ph Disposition Summary: 11/24/24 14:02 Hospitalization Ordered Notes: Hospitalization Status: Observation dave Provider: Nicholas Livingston cha Condition: Stable dave Problem: new dave Symptoms: have improved dave Bed/Room Type: Standard dave Location: Telemetry/MedSurg (observation)(11/24/24 19:35) kb3 Room Assignment: 225(11/24/24 19:35) kb3 Diagnosis - Chest pain, unspecified dave - Functional dyspepsia dave - Essential (primary) hypertension dave - Abnormal electrocardiogram [ECG] [EKG] dave - Hypokalemia dave - Abnormal findings on diagnostic imaging of heart and coronary circulation - dilated dave aortic root 4.4 cm Forms: - Medication Reconciliation Form dave - SBAR form dave - Leadership Thank You Letter dave Signatures: Dispatcher [employer] EDMS Idalia Diego Corey, MD MD cha Hall, Patricia RN RN Roseline Garcia RN RN ap3 Ning Holguin RN RN kb3 Corrections: (The following items were deleted from the chart) 13:52 13:52 Abdomen Limited+US.RAD.BRZ ordered. EDMS EDMS 14:06 14:06 EC Echo Doppler W/Color Flow+ECHO.RAD.BRZ ordered. EDMS EDMS 14:18 13:52 Chest For PE Angio+CT.RAD.BRZ ordered. EDMS EDMS 14:18 13:52 Abdomen Pelvis W Con+CT.RAD.BRZ ordered. EDMS EDMS 15:24 14:02 Telemetry/MedSurg (observation) dave kb3 15:24 14:02 dave kb3 16:33 15:24 [facility] ER HOLD kb3 bd 16:33 15:24 ERHOLD- kb3 bd 17:36 16:33 Telemetry/MedSurg (observation) bd kb3 17:36 16:33 222 bd kb3 19:35 17:36 [facility] ER HOLD kb3 kb3 19:35 17:36 ERHOLD- kb3 kb3
--- NOTE | 2024-11-24 14:03 | ER ---
Nurse's Notes [facility] Name: Kory Her Age: 44 yrs Sex: Male : 1980 Arrival Date: 11/24/2024 Time: 12:21 Bed 6 Private MD: Diagnosis: Chest pain, unspecified;Functional dyspepsia;Essential (primary) hypertension;Abnormal electrocardiogram [ECG] [EKG];Hypokalemia;Abnormal findings on diagnostic imaging of heart and coronary circulation-dilated aortic root 4.4 cm Presentation: 11/24 12:34 Chief complaint: Patient states: he has been having abdominal pressure pushing up into ap3 his chest. patient currently rates the pressure as a 10/10 on the pain scale. Coronavirus screen: At this time, the client does not indicate any symptoms associated with coronavirus-19. Ebola Screen: No symptoms or risks identified at this time. Initial Sepsis Screen: Does the patient meet any 2 criteria? No. Patient's initial sepsis screen is negative. Does the patient have a suspected source of infection? No. Patient's initial sepsis screen is negative. Risk Assessment: Do you want to hurt yourself or someone else? Patient reports no desire to harm self or others. Onset of symptoms is unknown. 12:34 Method Of Arrival: Wheelchair ap3 12:34 Acuity: JAMES 2 ap3 Triage Assessment: 12:45 General: Appears distressed, uncomfortable, Behavior is cooperative. Pain: Complains of ap3 pain in chest and abdomen Quality of pain is described as pressure. Neuro: Level of Consciousness is awake, alert, obeys commands, Oriented to person, place, time, situation, Appropriate for age. Cardiovascular: Reports chest pressure. Respiratory: Airway is patent Respiratory effort is even, unlabored. GI: Reports abdominal pressure. Historical: - Allergies: 12:33 No Known Allergies; ap3 - PMHx: 12:33 Atrial Fib; Hypertension; ap3 - Immunization history:: Client reports having NOT received the Covid vaccine. Flu vaccine is not up to date. - Infectious Disease History:: Denies. - Social history:: Smoking status: Patient/guardian denies using tobacco, Stopped _ months ago 1. - Family history:: not pertinent. Screenin:04 [facility] ED Fall Risk Assessment (Adult) History of falling in the last 3 months, ph including since admission No falls in past 3 months (0 pts) Confusion or Disorientation No (0 pts) Intoxicated or Sedated No (0 pts) Impaired Gait No (0 pts) Mobility Assist Device Used No (0 pt) Altered Elimination No (0 pt) Score/Fall Risk Level 0 - 2 = Low Risk Oriented to surroundings, Maintained a safe environment, Hourly rounding (assess needs \T\ fall precautionary measures) done. Abuse screen: Denies threats or abuse. Denies injuries from another. Nutritional screening: No deficits noted. Tuberculosis screening: No symptoms or risk factors identified. Assessment: 13:05 General: Appears in no apparent distress. Behavior is cooperative, appropriate for age, ph anxious. Pain: Complains of pain in abdomen Pain radiates to chest Pain began. Neuro: Level of Consciousness is awake, alert, obeys commands, Oriented to person, place, time, situation. Cardiovascular: Reports chest pain. Respiratory: Airway is patent Respiratory effort is even, unlabored, Respiratory pattern is regular, symmetrical. GI: Reports upper abdominal pain, diarrhea, nausea. Derm: Skin is pink, warm \T\ dry. 14:30 Reassessment: Patient appears in no apparent distress at this time. Patient and/or ph family updated on plan of care and expected duration. Pain level reassessed. Patient is alert, oriented x 3, equal unlabored respirations, skin warm/dry/pink. 15:56 Reassessment: Patient appears in no apparent distress at this time. Patient and/or ph family updated on plan of care and expected duration. Pain level reassessed. Patient is alert, oriented x 3, equal unlabored respirations, skin warm/dry/pink. 19:15 Reassessment: Patient and/or family updated on plan of care and expected duration. Pain br2 level reassessed. Patient is alert, oriented x 3, equal unlabored respirations, skin warm/dry/pink. Patient states feeling better. Patient states symptoms have improved. General: Appears in no apparent distress. comfortable, Behavior is cooperative, anxious. Pain: Denies pain. Vital Signs: 12:34 BP 168 / 108; Pulse 88; Resp 19; Pulse Ox 100% on R/A; Weight 104.33 kg; Height 6 ft. 2 ap3 in. ; Pain 10/10; 12:34 Temp 98(O); ap3 13:06 BP 153 / 91; Pulse 74; Resp 18; Pulse Ox 99% on R/A; ph 14:00 BP 155 / 91; Pulse 72; Resp 18; Pulse Ox 97% on R/A; ph 15:00 BP 145 / 91; Pulse 68; Resp 18; Pulse Ox 98% on R/A; ph 15:54 BP 147 / 90; Pulse 66; Resp 18; Pulse Ox 96% on R/A; ph 19:15 BP 130 / 84; Pulse 68; Resp 18; Pulse Ox 98% on R/A; Pain 0/10; br2 12:34 Body Mass Index 29.53 (104.33 kg, 187.96 cm) ap3 12:34 Pain Scale: Adult ap3 19:15 Pain Scale: Adult br2 Vitals: 13:06 Cardiac Rhythm Assessment Sinus rhythm W/unifocal PVC's. ph ED Course: 12:23 Patient arrived in ED. ra3 12:28 Igor Hill MD is Attending Physician. dave 12:36 Triage completed. ap3 12:36 EKG done, by ED staff, reviewed by Igor Hill MD. ap3 12:40 Christen Freedman, RN is Primary Nurse. ld1 12:41 Griselda Fried, RN is Primary Nurse. ph 12:46 Patient has correct armband on for positive identification. Placed in gown. Bed in low ap3 position. Call light in reach. Side rails up X2. Client placed on continuous cardiac and pulse oximetry monitoring. NIBP monitoring applied. manager monitoring on. Pulse ox on. NIBP on. 12:58 Basic Metabolic Panel Sent. ph 12:58 CBC with Diff Sent. ph 12:58 LFT's Sent. ph 12:58 Magnesium Sent. ph 12:58 NT PRO-BNP Sent. ph 12:58 PT-INR Sent. ph 12:58 Troponin HS Sent. ph 13:03 Initial lab(s) drawn, by me, sent to lab. Inserted saline lock: 22 gauge in right ph antecubital area, using aseptic technique. Blood collected. Flushed with 10 mL NS. Patient maintains SpO2 saturation greater than 95% on room air. 13:05 XRAY Chest (1 view) In Process Unspecified. EDMS 13:06 Arm band placed on Patient placed in an exam room, on a stretcher, on hospital monitor, ph on pulse oximetry. 14:01 Baidoo, Nicholas is Hospitalizing Provider. dave 14:22 Chest Abd Pelvis Wo Con In Process Unspecified. EDMS 14:28 US Abdomen Limited In Process Unspecified. EDMS 15:53 Urine Drug Screen Sent. ph 15:55 No provider procedures requiring assistance completed. Urine collected: clean catch ph specimen, clear. Patient admitted, IV remains in place. 15:56 Urine Drug Screen Sent. ph 20:52 Report received from KORY. br2 Administered Medications: 12:47 Drug: Aspirin PO Chewable Tablet 324 mg PO once; 81 mg tablets x 4 Route: PO; ph 15:56 Follow up: Response: No adverse reaction ph 16:45 Drug: Potassium PO Effervescent Tablet 25 mEq PO once; dissolve in 4 ounces of water or ph juice Route: PO; 17:00 Follow up: Response: No adverse reaction ph Medication: 13:06 VIS not applicable for this client. ph Outcome: 14:02 Decision to Hospitalize by Provider. dave 18:00 Admitted to ER Hold. Please see [facility] for further documentation. ph 18:00 Condition: good 18:00 Instructed on the need for admit, 20:41 Patient left the ED. br2 Signatures: Dispatcher [employer] Igor Amin MD MD cha Hall, Patricia, RN RN Roseline Garcia RN RN [email or web address] Christen Freedman RN RN Marilou Watt ra3 Bharati Leo RN RN br2
--- NOTE | 2024-11-24 14:41 | RAD REPORT ---
Abdomen Exam Limited: 11/24/2024 2:26 PM CLINICAL HISTORY: ABD PAIN STUDY: Limited right upper quadrant ultrasound of abdomen. COMPARISON: None. FINDINGS: Liver: Hepatic steatosis. Limited evaluation. Bile ducts: No intrahepatic or extrahepatic biliary ductal dilatation. Common bile duct measures 4 mm. Gallbladder: Normal. IMPRESSION: Unremarkable exam.
--- NOTE | 2024-11-24 14:48 | RAD REPORT ---
EXAM: CT CHEST, ABDOMEN AND PELVIS WITHOUT CONTRAST CLINICAL INDICATION: Male, 44 years old CHEST PAIN TECHNIQUE: CT chest, abdomen and pelvis was performed, without IV contrast, as per department protoco l. Axial, sagittal and coronal reconstructions were obtained. One or more of the following dose reduction techniques were used: Automated exposure control, adjustment of the mA and/or kV according to the patient size, and/or iterative reconstruction. Unless otherwise specified, incidental findings do not require dedicated imaging follow-up. [id number]. COMPARISON: No prior exam. FINDINGS: The lack of intravenous contrast limits the sensitivity of this exam for evaluation of solid visceral organs, vascular structures, and retroperitoneum. Chest: LOWER NECK: Visualized thyroid gland and soft tissues are normal. LUNGS AND AIRWAYS: Airways are clear. No evidence of airspace or interstitial process.No suspicious a nd/or stable pulmonary nodules. PLEURA: No pleural effusion. No pneumothorax. Hemidiaphragms are normally positioned. MEDIASTINUM AND LYMPH NODES: No mediastinal mass or fluid collection. Normal size mediastinal, hilar, and axillary lymph nodes. Mild distal esophageal thickening. THORACIC AORTA: Dilated aortic root measuring up to 4.4 cm. PULMONARY ARTERIES: Caliber is within normal limits. HEART: Normal heart size. No coronary calcifications.No significant pericardial effusion. Abdomen/Pelvis UPPER GI: No significant abnormality. LIVER: No significant focal abnormality. GALLBLADDER/BILE DUCTS: No biliary ductal dilatation.? PANCREAS: No mass, ductal dilation, or ramy-pancreatic fluid. SPLEEN: Unremarkable. ADRENALS: No adrenal masses. KIDNEYS AND URETERS: No hydronephrosis.No suspicious renal mass. ABDOMINAL AORTA AND OTHER VESSELS: Normal caliber aorta and IVC. PERITONEUM: No abnormal free fluid. No free air. LYMPH NODES: No pathologic lymphadenopathy. ABDOMINAL WALL: Unremarkable SMALL BOWEL/COLON: Small bowel has normal course and caliber. No colonic wall thickening or pericolon ic inflammatory changes.Normal appendix. URINARY BLADDER: Underdistended but grossly unremarkable. REPRODUCTIVE ORGANS: No pathologic process. MUSCULOSKELETAL: ADDITIONAL FINDINGS: None. IMPRESSION: No acute abnormalities in the chest, abdomen, or pelvis. Dilated aortic root measuring up to 4.4 cm. This should be evaluated with echocardiography if not pre viously done.
[2024-11-24] MEDS ORDERED: SODIUM CHLORIDE 0.9% 10ML INJ IV PRN (15:09)
[2024-11-24] MEDS ORDERED: ACETAMINOPHEN 325 MG TABLET PO PRN (15:09)
[2024-11-24] MEDS: PANTOPRAZOLE 40 MG INJ IVP SCH (15:12)
--- NOTE | 2024-11-24 15:29 | P.HP ---
Certification for Inpatient Patient admitted to: Observation With expected LOS: <2 Midnights Patient will require the following post-hospital care: None Practitioner: I am a practitioner with admitting privileges, knowledge of patient current condition, hospital course, and medical plan of care. Services: Services provided to patient in accordance with Admission requirements found in Title 42 Section 412.3 of the Code of Federal Regulations Patient History Date of Service: 11/24/24 Reason for admission: Chest pressure, dyspepsia History of Present Illness: Kory eHr is a 44 year old male with pmhx HTN, reported Afib, and reported Aortic valve disfunction who presents to the ED with chest pressure that started 2 days ago. He has come to the ED two other times this month, medication was prescribed for an upset stomach. CT chest abd pelvis reports No acute abnormalities in the chest, abdomen, or pelvis. Dilated aortic root measuring up to 4.4 cm." Laboratory evaluation significant for WBC 13.7, potassium 3.3, serum glucose 116, T. bili 1.2, direct bili 0.3, indirect bili 0.9. Chest xray reports "No acute abnormality is displayed." Abdominal Ultrasound reports "Liver: Hepatic steatosis. Limited evaluation. Bile ducts: No intrahepatic or extrahepatic biliary ductal dilatation. Common bile duct measures 4 mm. Gallbladder: Normal. IMPRESSION: Unremarkable exam." Kory will be admitted to hospitalist service for further evaluation of chest pressure and dyspepsia. Allergies No Known Allergies Allergy (Verified 07/17/16 17:54) Home Medications: Aspirin [Aspirin EC] 81 mg PO DAILY #30 tablet. 07/18/16 Metoprolol Tartrate [Lopressor*] 25 mg PO BID 6AM 6PM #60 tab 07/18/16 - Past Medical/Surgical History Diabetic: No -: htn? -: afib -: breast repair - Social History Smoking Status: Current every day smoker Alcohol use: No CD- Drugs: No Caffeine use: Yes Review of Systems Other: per HPI Physical Examination - Physical Exam General: Alert, In no apparent distress, Oriented x3 HEENT: Atraumatic, Normocephalic, PERRLA Neck: Supple, 2+ carotid pulse no bruit Respiratory: Clear to auscultation bilaterally, Normal air movement Cardiovascular: Normal pulses, Regular rate/rhythm, Normal S1 S2 Capillary refill: <2 Seconds Gastrointestinal: Normal bowel sounds, Soft and benign Musculoskeletal: No clubbing Integumentary: No rashes Neurological: Normal speech, Normal tone - Studies Laboratory Data (last 24 hrs) 11/24/24 11/24/24 11/24/24 12:55 12:55 12:55 WBC 13.70 H Hgb 15.1 Hct 43.6 Plt Count 381 PT 12.5 INR 1.19 Sodium 137 Potassium 3.3 L BUN 13 Creatinine 1.07 Glucose 116 H Magnesium 2.2 Total Bilirubin 1.2 H AST 36 ALT 60 Alkaline Phosphatase 84 Lipase 27 Assessment and Plan - Plan Assessment and plan Chest pressure R/O Dilated aortic root 4.4 cm Atrial fibrillation Hypokalemia Leukocytosis - EKG: No obvious ST segment changes, trend - troponin 10.3, Serial pending - Ordered transthoracic echocardiogram - chest x-ray no acute findings - Consult Cardiology - recommendations appreciated - S/P aspirin 324 mg PO x 1 in ED - Start daily baby aspirin and statin - Symptom control with PRN acetaminophen - continuous telemetry - TSH/FreeT4, A1C, lipid panel pending Dyspepsia -NPO -Carafate QID -Protonix twice daily Elevated bilirubin -T. bili 1.2, D bili 0.3, indirect bilirubin 0.9 -Gentle IV fluids -Monitoring a.m. labs Hypertension -168/108 on arrival -Continue home medication DVT PPx Lovenox Full code LOS 24 hour OBS Discharge Plan: Home Plan to discharge in: 24 Hours - Advance Directives Does patient have a Living Will: No Does patient have a Durable POA for Healthcare: No
[2024-11-24 15:57] LABS: Specific Gravity 1.005 (1.005-1.030); Urine Bilirubin NEGATIVE (Negative); Urine Blood Negative (Negative); Urine Clarity Clear (Clear); Urine Color Colorless (Yellow); Urine Glucose NEGATIVE (Negative); Urine Ketones 1+ (Negative); Urine Microscopic Reflex YN NO UMIC; Urine Nitrite NEGATIVE (Negative); Urine Protein NEGATIVE (Negative); Urine Urobilinogen Normal (Normal); Urine pH 6.5 (5.0-7.0)
[2024-11-24] MEDS: NA CHLORIDE 0.9% 1,000 ML IV SCH (16:00)
[2024-11-24] MEDS: ENOXAPARIN 40 MG/0.4 ML SQ SCH (16:00)
[2024-11-24] MEDS ORDERED: PANTOPRAZOLE 40 MG INJ ONE (16:05)
[2024-11-24] MEDS ORDERED: NA CHLORIDE 0.9% 1,000 ML ONE (16:06)
[2024-11-24] MEDS ORDERED: ENOXAPARIN 40 MG/0.4 ML SQ ONE (16:06)
[2024-11-24] MEDS ORDERED: POTASSIUM 25 MEQ EFFERV TAB ONE (16:06)
[2024-11-24 16:09] LABS: Barbiturates NEGATIVE (NEGATIVE); Benzodiazepines NEGATIVE (NEGATIVE); Cocaine NEGATIVE (NEGATIVE); METHAMPHETAM NEGATIVE (NEGATIVE); Methadone NEGATIVE (NEGATIVE); Opiates NEGATIVE (NEGATIVE); Phencyclidine NEGATIVE (NEGATIVE); THC Cannibis NEGATIVE (NEGATIVE)
[2024-11-24] MEDS: SUCRALFATE 1GM/10ML UCUP FT SCH (17:00)
[2024-11-24 20:41] VITALS: BMI 28.1
[2024-11-24] MEDS: ATORVASTATIN 40 MG TAB PO SCH (21:23)
[2024-11-24 22:12] LABS: Thyroid Stimulating Hormone 1.01 uIU/mL (0.358-3.740); Troponin High Sensitivity 13.8 pg/mL (<58.9)
[2024-11-25 07:04] LABS: Absolute Eosinophils 0.2 K/uL (0-0.5); Absolute Lymphocytes (CBC) 2.3 K/uL (0.7-4.9); Absolute Monocytes 0.7 K/uL (0.1-1.3); Absolute Neutrophil 7.1 K/uL (1.8-8.0); Basophils % 0.3 % (0-1.3); Eosinophils % 1.5 % (0-4.4); Hematocrit 41.1 % (39.6-49.0); Hemoglobin 14.4 g/dL (13.6-17.9); Lymphocytes % 22.5 % (15.3-44.8); MCHC 35.1 g/dL (32.0-36.0); MCV 85.4 fL (80-100); Monocytes % 7.2 % (3.3-12.3); Neutrophils % 68.5 % (41.7-73.7); Nucleated Red Blood Cells % 0.1 % (0-0); Platelets 367 thou/uL (152-406); RBC Red Blood Cell Count 4.82 M/uL (4.33-5.43); Red Cell Distribution Width 14.1 % (12.1-15.2)
[2024-11-25 07:26] LABS: Anion Gap 7.5 mEq/L (5.0-15.0); Magnesium 2.3 mg/dL (1.6-2.4); Phosphorus 2.5 mg/dL (2.5-4.9); Potassium 3.5 mEq/L (3.5-5.1)
[2024-11-25] MEDS: ASPIRIN EC 81 MG TAB PO SCH (08:52)
[2024-11-25] MEDS: LOSARTAN/HCTZ 50-12.5 PO SCH (11:11)
--- NOTE | 2024-11-25 12:18 | P.CNS ---
Date of Consult: 11/25/24 Chief Complaint: Chest pressure, dyspepsia History of Present Illness: Patient with PMH of HTN, presented with abdominal pain, bloating and generalized body aches associated with chest pressure sensation when he eats and feel bloated, report constipation with red stool. Allergies No Known Allergies Allergy (Verified 07/17/16 17:54) Home medications list reviewed: Yes Home Medications: Dicyclomine [Bentyl*] 20 mg PO TIDP PRN 11/25/24 Losartan/Hydrochlorothiazide [Hyzaar 100-25 Tablet] 1 tab PO DAILY 11/25/24 Ondansetron [Zofran (Odt)*] 4 mg PO Q6HP PRN 11/25/24 Simethicone [Gas Relief] 80 mg PO Q6HP PRN 11/25/24 hydrOXYzine HCL [Atarax*] 25 mg PO Q8HP PRN 11/25/24 - Past Medical/Surgical History Diabetic: No -: htn -: a fib -: breast repair - Family History Father History Unknown: Yes Medical History: Heart disease, Hypertension, Cancer, Other (see notes) Notes: prostate cancer Mother Medical History: Heart disease - Social History Smoking Status: Current every day smoker Alcohol use: Yes CD- Drugs: No Caffeine use: Yes Place of Residence: Home Review of Systems 10-point ROS is otherwise unremarkable Physical Examination Temp Pulse Resp BP Pulse Ox 97.4 F 67 16 107/83 96 11/25/24 12:00 11/25/24 12:00 11/25/24 12:00 11/25/24 12:00 11/25/24 12:00 General: Alert, In no apparent distress HEENT: Atraumatic, PERRLA, Mucous membr. moist/pink, EOMI, Sclerae nonicteric Neck: Supple, 2+ carotid pulse no bruit, No LAD, Without JVD or thyroid abnormality Respiratory: Clear to auscultation bilaterally, Normal air movement Cardiovascular: Regular rate/rhythm, Normal S1 S2 Gastrointestinal: Normal bowel sounds, No tenderness Musculoskeletal: No tenderness Integumentary: No rashes Neurological: Normal gait, Normal speech, Normal tone, Normal affect Lymphatics: No axilla or inguinal lymphadenopathy Laboratory Data (last 24 hrs) 11/24/24 11/24/24 11/24/24 12:55 12:55 12:55 WBC 13.70 H Hgb 15.1 Hct 43.6 Plt Count 381 PT 12.5 INR 1.19 Sodium 137 Potassium 3.3 L BUN 13 Creatinine 1.07 Glucose 116 H Magnesium 2.2 Total Bilirubin 1.2 H AST 36 ALT 60 Alkaline Phosphatase 84 Lipase 27 - Problems (1) Chest pain Current Visit: Yes Status: Acute Plan: atypical with negative cardiac enzymes, offered patient to do stress test but he refused which should be ok since he is low risk get echo. (2) Ascending aortic aneurysm Current Visit: Yes Status: Acute Plan: measuring 4.4 cm in diameter, continue to monitor with annual echo control HR and BP resume patient losartan/HCTZ
--- NOTE | 2024-11-25 13:53 | ECHO ---
HEIGHT: 6 ft 2 in WEIGHT: 219 lb 4.8 oz DATE OF STUDY: 11/25/[address]: Igor Hill MD 2-DIMENSIONAL: YES M.MODE: YES DOPPLER: YES COLOR FLOW: YES TDS: NO PORTABLE: YES DEFINITY: NO BUBBLE STUDY: NO DIAGNOSIS: CHEST PAIN CARDIAC HISTORY: CATHERIZATION: NO SURGERY: NO PROSTHETIC VALVE: NO PACEMAKER: NO MEASUREMENTS (cm) DIASTOLIC (NORMALS) SYSTOLIC (NORMALS) IVSd 0.9 (0.6-1.2) LA Diam 3.3 (1.9-4.0) LVEF 55-60% LVIDd 6.1 (3.5-5.7) LVIDs 4.6 (2.0-3.5) %FS 24% LVPWd 0.8 (0.6-1.2) Ao Diam 3.1 (2.0-3.7) 2 DIMENSIONAL ASSESSMENT: RIGHT ATRIUM: NORMAL LEFT ATRIUM: NORMAL RIGHT VENTRICLE: NORMAL LEFT VENTRICLE: NORMAL TRICUSPID VALVE: NORMAL MITRAL VALVE: NORMAL PULMONIC VALVE: NORMAL AORTIC VALVE: NORMAL PERICARDIAL EFFUSION: NONE AORTIC ROOT: DILATED, 4.1 CENTIMETERS IN DIAMETER LEFT VENTRICULAR WALL MOTION: NORMAL. DOPPLER/COLOR FLOW: NORMAL. COMMENTS: 1. NORMAL LEFT VENTRICULAR SYSTOLIC FUNCTION, EJECTION FRACTION 55-60%, NORMAL WALL MOTION. 2. NORMAL DIASTOLIC FUNCTION. 3. MILDLY DILATED ASCENDING AORTA (MEASURE 4.1 CENTIMETERS IN DIAMETER) TECHNOLOGIST: JANES NIELSON
--- NOTE | 2024-11-25 15:06 | P.PN ---
Date of Service: 11/25/24 Subjective: Complains of episodes of abdominal swelling followed by numbness and tingling in all extremities Has severe abdominal pain during these episodes All seem to start after having the flu with some GI symptoms ROS: 10 point ROS as noted above, otherwise negative Physical exam GEN: Alert, oriented, NAD HEENT: Normal conjunctiva, sclera anicteric CV: Regular rate and rhythm, no edema Pulm: Nonlabored respirations on room air ABD: Soft, nontender, nondistended MSK: No joint tenderness Integumentary: No rashes Neuro: Normal speech, normal affect Vitals reviewed Assessment and plan Chest pressure R/O Dilated aortic root 4.4 cm Atrial fibrillation Hypokalemia Leukocytosis - EKG: No obvious ST segment changes, trend - Troponins negative/trended flat - Ordered transthoracic echocardiogram - chest x-ray no acute findings -Cardiology evaluated patient, recommended stress test, patient declined prefers outpatient workup when feeling better - S/P aspirin 324 mg PO x 1 in ED - Start daily baby aspirin and statin - Symptom control with PRN acetaminophen - continuous telemetry Dyspepsia -Advance diet as tolerated -Carafate QID -Protonix twice daily Elevated bilirubin -T. bili 1.2, D bili 0.3, indirect bilirubin 0.9 -Gentle IV fluids -Monitoring a.m. labs Hypertension -168/108 on arrival -Continue home medication DVT PPx Lovenox Full code LOS 24 hours Discharge Plan: Home Plan to discharge in: 24 Hours - Advance Directives Does patient have a Living Will: No Does patient have a Durable POA for Healthcare: No Time Spent Managing Pts Care (In Minutes): 35
[2024-11-25] MEDS: LORazepam 2 MG/ML VIAL IV ONE (17:31)
[2024-11-25] MEDS: SIMETHICONE 80 MG CHEWABLE TAB PO SCH (17:32)
[2024-11-25] MEDS: LORazepam 2 MG/ML VIAL IV PRN (17:40)
[2024-11-26 05:36] LABS: Absolute Basophils 0.1 K/uL (0-0.5); Absolute Eosinophils 0.2 K/uL (0-0.5); Absolute Monocytes 0.8 K/uL (0.1-1.3); Absolute Neutrophil 7.3 K/uL (1.8-8.0); Basophils % 0.5 % (0-1.3); Eosinophils % 1.9 % (0-4.4); Hematocrit 43.7 % (39.6-49.0); Hemoglobin 14.9 g/dL (13.6-17.9); Lymphocytes % 26.1 % (15.3-44.8); MCH 29.2 pg (27.0-35.0); MCHC 34.1 g/dL (32.0-36.0); MCV 85.9 fL (80-100); MPV 7.1 fL (7.6-11.3); Monocytes % 7.1 % (3.3-12.3); Neutrophils % 64.4 % (41.7-73.7); Nucleated Red Blood Cells % 0.1 % (0-0); Platelets 387 thou/uL (152-406); RBC Red Blood Cell Count 5.08 M/uL (4.33-5.43); Red Cell Distribution Width 14.2 % (12.1-15.2)
[2024-11-26 06:11] LABS: Anion Gap 7.5 mEq/L (5.0-15.0); Magnesium 2.2 mg/dL (1.6-2.4); Phosphorus 2.8 mg/dL (2.5-4.9); Potassium 3.5 mEq/L (3.5-5.1); Troponin High Sensitivity 18.2 pg/mL (<58.9)
[2024-11-26] MEDS: POTASSIUM CL SA 10 MEQ TAB PO ONE (07:41)
[2024-11-26 12:07] VITALS: BP 155/94; TEMP 97.9; O2SAT 96
--- NOTE | 2024-11-26 12:34 | EKG ---
Test Date: 2024-11-24 Test Time: 12:31:45 Regrinder: ALP MEASUREMENT RESULTS: Intervals: Rate: 82 OR: 160 QRSD: 98 QT: 370 QTc: 432 [place]: P: 29 OR: 160 QRS: 56 T: 2 INTERPRETIVE STATEMENTS: Normal sinus rhythm T wave abnormality, consider inferior ischemia Abnormal ECG Compared to ECG 11/09/2024 22:32:57 Possible ischemia now present T-wave abnormality still present Electronically Signed On 11-26-24 12:31:29 SOCIAL SCIENCES CHAIR by Liam Zultea
--- NOTE | 2024-11-26 15:50 | P.DS ---
Admission Date: 11/25/24 Discharge Date: 11/26/24 Disposition: ROUTINE DISCHARGE Discharge Condition: GOOD Reason for Admission: Chest pressure, dyspepsia Brief History of Present Illness: Kory Her is a 44 year old male with pmhx HTN, reported Afib, and reported Aortic valve disfunction who presents to the ED with chest pressure that started 2 days ago. He has come to the ED two other times this month, medication was prescribed for an upset stomach. CT chest abd pelvis reports No acute abnormalities in the chest, abdomen, or pelvis. Dilated aortic root measuring up to 4.4 cm." Laboratory evaluation significant for WBC 13.7, potassium 3.3, serum glucose 116, T. bili 1.2, direct bili 0.3, indirect bili 0.9. Chest xray reports "No acute abnormality is displayed." Abdominal Ultrasound reports "Liver: Hepatic steatosis. Limited evaluation. Bile ducts: No intrahepatic or extrahepatic biliary ductal dilatation. Common bile duct measures 4 mm. Gallbladder: Normal. IMPRESSION: Unremarkable exam." Kory will be admitted to hospitalist service for further evaluation of chest pressure and dyspepsia. Hospital Course: Assessment Chest pressure R/O Dilated aortic root 4.4 cm Atrial fibrillation Hypokalemia Leukocytosis Dyspepsia Elevated bilirubin Hypertension Patient was admitted to the hospital for upper abdominal pressure, chest pressure, paresthesias. He reports that he had the flu about 2 weeks ago and since then he been having issues that he feels originate from his stomach area. He feels strong upper abdominal pressure that then develops into chest pressure, he then began to experience paresthesias and weak anxious. He had a CT of his chest abdomen and pelvis which was negative for acute findings and abdominal ultrasound which was also negative for acute findings. Echocardiogram was performed and did show a mildly dilated ascending aorta at 4.1 cm. Otherwise normal. He was counseled by cardiology to have annual echo performed in the office. During his hospitalization he experienced 1 of these episodes with the abdominal discomfort followed by paresthesias of his the back of his head, neck, both arms, across his chest and became tremulous.It Is likely that patient is experiencing abdominal cramping/gas followed by anxiety/panic attack. He was given 0.5mg of IV Ativan during 1 of these episodes and he was able to eliminate the additional symptoms including the chest pressure, tremors, anxiety. He was also given Carafate, Protonix during his hospitalizations which seem to help with his GI symptoms. At discharge he may also continue taking the dicyclomine/Bentyl as needed for abdominal cramping. Short supply of Ativan to take as needed sent to [facility] in [place] along with the Carafate and Protonix. He already has prescriptions for Bentyl, Atarax next visits. Follow up with your doctor in 1 to 2 weeks You should also see a psychiatrist at some point for the anxiety Vital Signs/Physical Exam: Temp Pulse Resp BP Pulse Ox 97.9 F 73 16 155/94 H 96 11/26/24 12:00 11/26/24 12:00 11/26/24 12:00 11/26/24 12:00 11/26/24 12:00 General: Alert, In no apparent distress, Oriented x3 HEENT: Atraumatic, PERRLA Neck: Supple, JVD not distended Respiratory: Clear to auscultation bilaterally, Normal air movement Cardiovascular: Regular rate/rhythm, Normal S1 S2 Gastrointestinal: Normal bowel sounds, No tenderness Musculoskeletal: No tenderness Integumentary: No rashes Neurological: Normal speech, Normal tone, Normal affect Laboratory Data at Discharge: WBC 11.40 thou/uL (4.3-10.9) H 11/26/24 05:07 Hgb 14.9 g/dL (13.6-17.9) 11/26/24 05:07 Hct 43.7 % (39.6-49.0) 11/26/24 05:07 Plt Count 387 thou/uL (152-406) 11/26/24 05:07 PT 12.5 SECONDS (9.4-12.5) 11/24/24 12:55 INR 1.19 11/24/24 12:55 Sodium 137 mEq/L (136-145) 11/26/24 05:07 Potassium 3.5 mEq/L (3.5-5.1) 11/26/24 05:07 BUN 9 mg/dL (7-18) 11/26/24 05:07 Creatinine 1.07 mg/dL (0.70-1.30) 11/26/24 05:07 Glucose 94 mg/dL (74-106) 11/26/24 05:07 Phosphorus 2.8 mg/dL (2.5-4.9) 11/26/24 05:07 Magnesium 2.2 mg/dL (1.6-2.4) 11/26/24 05:07 Total Bilirubin 1.2 mg/dL (0.2-1.0) H 11/24/24 12:55 AST 36 U/L (15-37) 11/24/24 12:55 ALT 60 U/L (16-61) 11/24/24 12:55 Alkaline Phosphatase 84 U/L (45-117) 11/24/24 12:55 Triglycerides 169 mg/dL (<150) H 11/25/24 06:26 Cholesterol 179 mg/dL (<200) 11/25/24 06:26 HDL Cholesterol 33 mg/dL (40-60) L 11/25/24 06:26 Cholesterol/HDL Ratio 5.42 11/25/24 06:26 Lipase 27 U/L (13-75) 11/24/24 12:55 Home Medications: Dicyclomine [Bentyl*] 20 mg PO TIDP PRN 11/25/24 Losartan/Hydrochlorothiazide [Hyzaar 100-25 Tablet] 1 tab PO DAILY 11/25/24 Ondansetron [Zofran (Odt)*] 4 mg PO Q6HP PRN 11/25/24 Simethicone [Gas Relief] 80 mg PO Q6HP PRN 11/25/24 hydrOXYzine HCL [Atarax*] 25 mg PO Q8HP PRN 11/25/24 LORazepam [Ativan] 0.5 mg PO Q6H PRN #10 tab 11/26/24 Pantoprazole [Protonix Tab] 40 mg PO DAILY #30 tab 11/26/24 Sucralfate [Carafate*] 10 ml PO ACHS #1200 ml 11/26/24 New Medications: LORazepam [Ativan] 0.5 mg PO Q6H PRN #10 tab PRN Reason: Anxiety Sucralfate [Carafate*] 10 ml PO ACHS #1200 ml Pantoprazole [Protonix Tab] 40 mg PO DAILY #30 tab Physician Discharge Instructions: Patient was admitted to the hospital for upper abdominal pressure, chest pressure, paresthesias. He reports that he had the flu about 2 weeks ago and since then he been having issues that he feels originate from his stomach area. He feels strong upper abdominal pressure that then develops into chest pressure, he then began to experience paresthesias and weak anxious. He had a CT of his chest abdomen and pelvis which was negative for acute findings and abdominal ultrasound which was also negative for acute findings. Echocardiogram was performed and did show a mildly dilated ascending aorta at 4.1 cm. Otherwise normal. He was counseled by cardiology to have annual echo performed in the office. During his hospitalization he experienced 1 of these episodes with the abdominal discomfort followed by paresthesias of his the back of his head, neck, both arms, across his chest and became tremulous.It Is likely that patient is experiencing abdominal cramping/gas followed by anxiety/panic attack. He was given 0.5mg of IV Ativan during 1 of these episodes and he was able to eliminate the additional symptoms including the chest pressure, tremors, anxiety. He was also given Carafate, Protonix during his hospitalizations which seem to help with his GI symptoms. At discharge he may also continue taking the dicyclomine/Bentyl as needed for abdominal cramping. Short supply of Ativan to take as needed sent to [facility] in [place] along with the Carafate and Protonix. He already has prescriptions for Bentyl, Atarax next visits. Follow up with your doctor in 1 to 2 weeks You should also see a psychiatrist at some point for the anxiety Diet: [place] Activity: Ad yobani Followup: NONE,NONE [Primary Care Provider] - 1-2 Weeks Time spent managing pt's care (in minutes): 47
--- NOTE | 2024-12-02 12:43 | EKG ---
Test Date: 2024-11-25 Test Time: 17:06:08 Contour Sander: MEASUREMENT RESULTS: Intervals: Rate: 68 HI: 184 QRSD: 98 QT: 434 QTc: 461 [place]: P: 51 HI: 184 QRS: 32 T: -16 INTERPRETIVE STATEMENTS: Sinus rhythm with premature atrial complexes with aberrant conduction Otherwise normal ECG Compared to ECG 11/24/2024 12:31:45 Atrial premature complex(es) now present Aberrant conduction of supraventricular beat(s) now present T-wave abnormality no longer present Possible ischemia no longer present Electronically Signed On 12-02-24 12:25:13 TELECOMMUNICATIONS REPAIRER by Liam Zuleta
--- NOTE | 2024-12-02 12:43 | EKG ---
Test Date: 2024-11-25 Test Time: 17:05:21 Electronic Train Control Technician: MEASUREMENT RESULTS: Intervals: Rate: 73 TN: 186 QRSD: 100 QT: 440 QTc: 484 [place]: P: 46 TN: 186 QRS: 29 T: -20 INTERPRETIVE STATEMENTS: Sinus rhythm with premature atrial complexes with aberrant conduction T wave abnormality, consider inferior ischemia Abnormal ECG Compared to ECG 11/24/2024 12:31:45 Atrial premature complex(es) now present Aberrant conduction of supraventricular beat(s) now present T-wave abnormality still present Possible ischemia still present Electronically Signed On 12-02-24 12:25:16 DOCENT COORDINATOR by Liam Zuleta
--- NOTE | 2024-12-02 12:44 | EKG ---
Test Date: 2024-11-25 Test Time: 17:04:37 Baseball Umpire For [employer]: MEASUREMENT RESULTS: Intervals: Rate: 71 UT: 188 QRSD: 100 QT: 410 QTc: 445 [place]: P: 54 UT: 188 QRS: 27 T: -24 INTERPRETIVE STATEMENTS: Sinus rhythm with frequent premature ventricular complexes T wave abnormality, consider inferior ischemia Abnormal ECG Compared to ECG 11/25/2024 17:02:43 Sinus arrhythmia no longer present T-wave abnormality still present Possible ischemia still present Electronically Signed On 12-02-24 12:25:17 WEATHERSEAL TECHNICIAN by Liam Zuleta
--- NOTE | 2024-12-02 12:44 | EKG ---
Test Date: 2024-11-25 Test Time: 17:02:43 Oil Mixer: MEASUREMENT RESULTS: Intervals: Rate: 71 SD: 162 QRSD: 106 QT: 444 QTc: 482 [place]: P: 54 SD: 162 QRS: 27 T: -17 INTERPRETIVE STATEMENTS: Sinus rhythm with sinus arrhythmia with occasional premature ventricular complexes T wave abnormality, consider inferior ischemia Abnormal ECG Compared to ECG 11/24/2024 12:31:45 Ventricular premature complex(es) now present T-wave abnormality still present Possible ischemia still present Electronically Signed On 12-02-24 12:25:20 DATABASE ADMINISTRATOR by Liam Zuleta
== END 2024-11-26 14:13 | disposition home or self-care (01) | DRG 313 ==
LOC: ER 12:21 → ERHOLD 15:09 → 2ND 20:05 → OBSVTOIN 11-25 19:37
PROVIDERS: ADMIT Internal Medicine; ATTEND Hospitalist
DX: R07.9 Chest pain, unspecified (principal); I48.91 Unspecified atrial fibrillation; I10 Essential (primary) hypertension; E87.6 Hypokalemia; E66.9 Obesity, unspecified; D72.829 Elevated white blood cell count, unspecified; I71.21 Aneurysm of the ascending aorta, without rupture; K76.0 Fatty (change of) liver, not elsewhere classified; F41.9 Anxiety disorder, unspecified; F17.200 Nicotine dependence, unspecified, uncomplicated; Z28.310 Unvaccinated for COVID-19; Z68.28 Body mass index [BMI] 28.0-28.9, adult; Z79.82 Long term (current) use of aspirin; Z79.899 Other long term (current) drug therapy
CPT/HCPCS: 36415; 71045; 71250; 74176; 76705; 80048; 80061; 80076; 80307; 81003; 82947; 83690; 83735; 83880; 84100; 84439; 84443; 84484; 85025; 85610; 93005; 93306; 99285; G0378; J1650; J2470; J7030

== ENCOUNTER 2025-01-01 07:30 | Observation (INO) | payer OTHER, SELFPAY ==
--- OUTSIDE RECORDS SUMMARY | 2025-01-01 07:34 | XMS REPORT | Continuity of Care Document ---
Author Name Unknown Address [address] [facility] [address] Miguel. [address] [place] [address] [facility] [place] Address [address] [facility]. [address] [place] [address] Care Team Providers Care Departmental Secretary Name Role Phone PCP, PATIENT DOES NOT HAVE A Primary Care Physic LEENA Maki Attending Clinician LEENA Cardoza Attending Clinician Leena Cardoza MD Attending Clinician [phone] YUNIEL SCHRADER Attending Clinician Unavailable YUNIEL SCHRADER Attending Clinician Unavailable Yuniel Schrader DO Attending Clinician [phone] ROWAN MEDEIROS Attending Clinician UnavailRowan Banks Attending Clinician [phone] Unknown, Attending Attending Clinician Lacey steen Only, Ang Db Test Attending Clinician Rowan Erickson Attending Clinician [phone] Doctor Unassigned, [place] Attending Clinician LEENA Garcia Admitting Clinician YUNIEL Parekh Admitting Clinician Unavailable Payers Payer Name Policy Type Policy Number Effective Date Expirati on Date Source [facility] [id number] 2024 00:00:00 [employer] \\T\\ ACCI [id number] 2014 00:00:00 Problems Condition Name Condition Details Condition Category Status Onset Date Resolution Date Last Treatment Date Treating Clinician Comments Source HTN (hypertens ion) HTN (hypertens ion) Disease Active - 00:00: 00 [facility] Allergies, Adverse Reactions, Alerts Allergy Name Allergy Type Status Severity Reaction(s) Onset Date Inactive Date Treating Clinician Comments Source NO KNOWN ALLERGIE S Drug Class Active [facility] Social History Social Habit Start Date Stop Date Quantity Comments Source [facility] Exposure to SARS-CoV-2 (event) Yes [facility] Sex assigned at 1980 00:00:00 1980 00:00:00 [facility] Smoking Status Start Date Stop Date Source Tobacco smoking consumption unknown [facility] Medications Ordered Medication Name Filled Medication Name Start Date Stop Date Current Medication? Ordering Clinician Indication Dosage Frequency Signature (SIG) Comments Components Source dexamethaso ne sod phos PF injection 10 mg 12-24 19:45: 00 12-24 20:38 :00 No 10mg 10 mg, Slow IV Push, ONCE, 1 dose, On Sun12/24/24 at 1345, 1 mL [facility] iopamidol (ISOVUE 370-500 mL) injection 80 mL 12-24 18:15: 00 12-24 17:25 :00 No [id number] 80mL 80 mL, Intravenou s, ONCE, 1 dose, On Sun12/24/24 at 1215, Routine [facility] NaCl 0.9% (NS) IV infusion 1,000 mL 12-24 18:15: 00 12-24 20:48 :00 No 1000mL at 125 mL/hr, IV Infusion, ONCE, 1 dose, On Sun12/24/24 at 1215, Routine [facility] ondansetron (ZOFRAN (PF)) injection 8 mg 12-24 18:15: 00 12-24 17:32 :00 No 8mg 8 mg, Slow IV Push, ONCE, On Sun12/24/24 at 1215, For 1 dose, Please give medication over 2-5 minutes. [facility] morpHINE injection 4 mg 12-24 17:30: 00 12-24 17:29 :00 No 4mg 4 mg, Slow IV Push, ONCE, 1 dose, On Sun12/24/24 at 1130, STAT [facility] famotidine (PEPCID (PF)) injection 20 mg 12-24 17:30: 00 12-24 17:30 :00 No 20mg 20 mg, Slow IV Push, ONCE, 1 dose, On Sun12/24/24 at 1130, CHRISTINA [facility] maalox/diph enhydrAMINE :lidocaine2 %viscous 1:1:1: suspension (COMPOUNDED ) 12-24 17:15: 00 12-24 17:30 :00 No 15mL 15 mL, Oral, ONCE, 1 dose, On Sun12/24/24 at 1115, Routine [facility] proMETHazin e 25 mg tablet 12-24 00:00: 00 Yes [id number] 25mg Take 1 tablet by mouth every 6 (six) hours as needed for Nausea and Vomiting (N/V). [facility] traMADoL 50 mg tablet 12-24 00:00: 00 Yes [id number] 50mg Take 1 tablet by mouth every 6 (six) hours as needed (pain). Indication s: acute pain [facility] predniSONE 20 mg tablet 12-24 00:00: 00 01-01 05:59 :00 Yes [id number] 40mg Take 2 tablets by mouth in the morning for 7 days. [facility] LORazepam (ATIVAN) injection 1 mg 12-02 01:45: 00 12-02 01:37 :00 No 1mg 1 mg, Slow IV Push, ONCE, 1 dose, On Sun12/01/24 at 1945, STAT [facility] ondansetron (ZOFRAN (PF)) injection 4 mg 12-01 23:00: 00 12-01 22:12 :00 No 4mg 4 mg, Slow IV Push, ONCE, 1 dose, On Sun12/01/24 at 1700, 2 mL [facility] NaCl 0.9% (NS) bolus infusion 1,000 mL 12-01 22:00: 00 12-02 01:38 :00 No 1000mL at 999 mL/hr, 1,000 mL, IV Infusion, ONCE, 1 dose, On Sun12/01/24 at 1600, STAT [facility] dicyclomine 10 mg capsule 12-01 00:00: 00 12-07 05:59 :00 Yes [id number] 10mg Take 1 capsule by mouth 4 (four) times daily for 5 days. [facility] famotidine (PEPCID ORAL) 11-11 11:05: 22 Yes Take by mouth. [facility] benzonatate 200 mg capsule 11-11 00:00: 00 11-22 05:59 :00 Yes [id number] 200mg Take 1 capsule by mouth 3 (three) times daily as needed for Cough for up to 10 days. [facility] oseltamivir (TAMIFLU) 75 mg capsule 11-11 00:00: 00 11-17 05:59 :00 Yes [id number] 75mg Take 1 capsule by mouth in the morning and 1 capsule in the evening. Do all this for 5 days. [facility] Vital Signs Vital Name Observation Time Observation Value Comments S nick Systolic blood pressure 2024-12-24 20:38:00 140 mm[Hg] [facility] Diastolic blood pressure 2024-12-24 20:38:00 83 mm[Hg] [facility] Heart rate 2024-12-24 20:38:00 65 /min [facility] Body temperature 2024-12-24 20:38:00 37.11 Iva [facility] Respiratory rate 2024-12-24 20:38:00 19 /min [facility] Oxygen saturation in Arterial blood by Pulse oximetry 2024-12-24 20:38:00 98 /min [facility] Body height 2024-12-24 16:18:00 188 cm [facility] Body weight 2024-12-24 16:18:00 93.441 kg [facility] BMI 2024-12-24 16:18:00 26.45 kg/m2 [facility] Systolic blood pressure 2024-12-02 03:29:00 131 mm[Hg] [facility] Diastolic blood pressure 2024-12-02 03:29:00 94 mm[Hg] [facility] Heart rate 2024-12-02 03:29:00 73 /min Unive [facility] Body temperature 2024-12-02 03:29:00 36.83 Iva [facility] Respiratory rate 2024-12-02 03:29:00 18 /min [facility] Oxygen saturation in Arterial blood by Pulse oximetry 2024-12-02 03:29:00 97 /min [facility] Body height 2024-12-01 21:19:00 188 cm [facility] Body weight 2024-12-01 21:19:00 99.791 kg [facility] BMI 2024-12-01 21:19:00 28.25 kg/m2 [facility] Systolic blood pressure 2024-11-11 16:53:00 146 mm[Hg] [facility] Diastolic blood pressure 2024-11-11 16:53:00 93 mm[Hg] [facility] Body height 2024-11-11 16:52:00 188 cm [facility] Body weight 2024-11-11 16:52:00 108.274 kg [facility] BMI 2024-11-11 16:52:00 30.65 kg/m2 [facility] Oxygen saturation in Arterial blood by Pulse oximetry 2024-11-11 16:52:00 99 /min [facility] Heart rate 2024-11-11 16:52:00 96 /min Un[facility] Body temperature 2024-11-11 16:52:00 38.17 Iva [facility] Respiratory rate 2024-11-11 16:52:00 18 /min [facility] Procedures Procedure Date / Time Performed Performing Clinicia n Source CT ABDOMEN PELVIS W CONTRAST 2024-12-24 17:28:40 Angelica Ko [facility] LIPASE 2024-12-24 16:47:00 Leena Truong [facility] COMP. METABOLIC PANEL (78869) 2024-12-24 16:47:00 Leena Truong [facility] CBC WITH DIFF 2024-12-24 16:47:00 [facility] 2024-12-24 16:47:00 Leena Truong [facility] CT ABDOMEN PELVIS WO CONTRAST 2024-12-02 00:56:00 Singer Yuniel [facility] LIPASE 2024-12-01 22:13:[address] [facility] MAGNESIUM 2024-12-01 22:13:00 Singer [facility] COMP. METABOLIC PANEL ([id number]) 2024-12-01 22:13:00 Singer Yuniel [facility] CBC WITH DIFF 2024-12-01 22:13:00 Singer [facility] POCT MOLECULAR FLU 2024-11-11 16:52:00 Unknown, Attend ing [facility] CONSENT/REFUSAL FOR DIAGNOSIS AND TREATMENT 2021-11-16 22:26:34 Doctor Unassigned, [place] [facility] Encounters Start Date/Time End Date/Time Encounter Type Admission Type Attending [facility] Care Facility Care Department Encounter ID Source 2024-12-24 10:21:00 2024-12-24 14:47:00 Emergency X LEENA TRUONG [facility] E[facility] [id number] [facility] 2024-12-24 10:21:00 2024-12-24 14:47:00 Emergency Leena Truong [facility] [id number] 350.1.13.10 4.2.7.2.686 [id number] [facility] 2024-12-01 15:28:00 2024-12-01 21:35:00 Emergency X YUNIEL SCHRADER [facility] ERT [id number] [facility] 2024-12-01 15:28:00 2024-12-01 21:35:00 Emergency Yuniel Schrader [facility] 1.840.114 350.1.13.10 4.2.7.2.686 [id number] [facility] 2024-11-11 09:40:00 2024-11-11 11:11:22 Outpatient R DAVIE ROWAN [facility] [id number] [facility] 2024-11-11 09:40:00 2024-11-11 11:11:22 Urgent Care Rowan Medeiros Unknown, Attending [facility] 1.840.114 350.1.13.10 4.2.7.2.686 [id number] [facility] 2021-11-17 10:30:00 2021-11-17 10:30:00 Outpatient R [facility] [id number] [facility] 2021-11-16 20:30:00 2021-11-16 20:45:00 Laboratory Only Only, Ang Db Test Mahsa Medeirosdonny Mcintosh [facility] 1.840.114 350.1.13.10 4.2.7.2.686 [id number] [facility] 2021-11-16 20:30:00 2021-11-16 20:30:00 Outpatient R DAVIEMAHSAROWAN [facility] [id number] [facility] 2021-11-16 00:00:00 2021-11-16 00:00:00 Orders Only Doctor Unassigned, [place] [facility] 1.840.114 350.1.13.10 4.2.7.2.686 [id number] [facility] Results Test Description Test Time Test Comments Results Resul t Comments Source CT Abdomen pelvis w contrast 2024-11-30 6 18:09:51 EXAM: CT ABDOMEN AND PELVIS WITH CONTRAST HISTORY: Abdominal pain, acute, nonlocalized COMPARISON: 12/01/2024 TECHNIQUE: Contiguous axial imaging was performed following administrationof intravenous contrast. Coronal and sagittal reconstructions wereobtained. FINDINGS: The lung bases are clear. The liver, spleen, gallbladder, pancreas, adrenal glands and kidneys arenormal. The aorta and iliac arteries are normal in caliber. The bladder is unremarkable. The prostate gland is not significantlyenlarged . There is no bowel wall thickening or obstruction. The appendix isnormal. There is no free fluid or lymphadenopathy. Mild degenerative change involving the spine is present. [facility]25[facility]* Test Item Value Reference Range Interpretation Comme nts LIPASE (test code = 6185132762) 62 U/L 0-220 Lab Interpretation (test cod e = 09257-6) Normal [facility] WITH [id number] 17:13:06* Test Item Value Reference Range Interpretation Comme nts WBC (test code = 6690-2) 6.15 4.20-10.70 RBC (test code = 789-8) 5.13 4.26-5.52 HGB (test code = 718-7) 15.0 g/dL 12.2-16.4 HCT (test code = 4544-3) 42.8 % 38.4-49.3 MCV (test code = 787-2) 83.4 fL 81.7-95.6 MCH (test code = 785-6) 29.2 pg 26.1-32.7 MCHC (test code = 786-4) 35.0 g/dL 31.2-35.0 RDW-SD (test code = 11430-7) 41.7 fL 38.5-51.6 RDW-CV (test code = 788-0) 13.6 % 12.1-15.4 PLT (test code = 777-3) 270 150-328 MPV (test code = 91073-1) 9.7 fL 9.8-13.0 L NRBC/100 WBC (test code = 3899484087) 0.0 0.0-10.0 NRBC x10^3 (test code = 5534555328) See_Comment [Automated [employer] ge] The system which generated this result transmitted reference range: 10*3/?L. The reference range was not used to interpret this result as normal/abnormal. GRAN MAT (NEUT) % (test code = 770-8) 68.4 % IMM GRAN % (test code = 4754778964) 0.30 % LYMPH % (test code = 736-9) 24.9 % MONO % (test code = 5905-5) 5.9 % EOS % (test code = 713-8) 0.3 % BASO % (test code = 706-2) 0.2 % GRAN MAT x10^3(ANC) (test code = 8335714344) 4.21 10*3/uL 1.99-6.95 IMM GRAN x10^3 (test code = 0057088012) 0.00-0.06 LYMPH x10^3 (test code = 731-0) 1.53 10*3/uL 1.09-3.23 MONO x10^3 (test code = 742-7) 0.36 10*3/uL 0.36-1.02 EOS x10^3 (test code = 711-2) 0.06-0.53 L BASO x10^3 (test code = 704-7) 0.01-0.09 Lab Interpretation (test code = 22946-9) Abnormal [facility] wo [id number] 01:59:51Indication: Abdominal pain, acute, nonlocalized Stone suspected ? Comparison: None RL: [id number] ORDERING PHYSICIAN: ?YUNIEL SEWELL TECHNIQUE: A multislice helical scanner was utilized to obtain serial axialslices through the abdomen and pelvis from the lung bases to below theischial tuberosities without intravenous contrast. Automated dose loweringtechniques and/or adjustment according to patient size were utilized forthis exam. FINDINGS:Evaluation of vasculature, solid and hollow intra-abdominalandpelvic viscera is suboptimal without IV contrast. ? Bilateral lung bases are clear. The liver isnormal. The gallbladder is normal. The spleen, pancreas, ?andadrenal glands are unremarkable. The kidneys demonstrate no evidence of hydronephrosis. The small and large bowel are normal in caliber. There is no evidence forbowel obstruction. ? No CT evidence for appendicitis. ? Abdominal aorta is normal in caliber. Urinary bladder is unremarkable. Prostate is enlarged measuring up to 5.3cm. No acute osseous abnormality is noted.[facility] [id number] 23:56:01* Test Item Value Reference Range Interpretation Comme nts MAGNESIUM (test code = 9789324279) 1.9 mg/dL 1.7-2.4 Lab Interpretation (test cod e = 19631-8) Normal [facility] (82639)2024-12-01 23:06:34* Test Item Value Reference Range Interpretation Comme nts NA (test code = 7666155011) 136 mmol/L 135-145 K (test code = 9165167904) 3.6 mmol/L 3.5-5.0 CL (test code = 5010079418) 98 mmol/L 98-108 CO2 TOTAL (test code = 3360201602) 27 mmol/L 23-31 AGAP (test code = 1782431596) 11 2-16 BUN (test code = 3362782017) 7 mg/dL 7-23 GLUCOSE (test code = 9976559646) 90 mg/dL 70-110 CREATININE (test code = 2160-0) 0.95 mg/dL 0.60-1.25 TOTAL BILI (test code = 9851372147) 1.3 mg/dL 0.1-1.1 H CALCIUM (test code = 2308644913) 9.5 mg/dL 8.6-10.6 T PROTEIN (test code = 6558284870) 8.0 g/dL 6.3-8.2 ALBUMIN (test code = 7843499946) 5.0 g/dL 3.5-5.0 ALK PHOS (test code = 3556754699) 86 U/L 34-122 ALTv (test code = 1742-6) 44 U/L 5-50 AST(SGOT) (test code = 5607171153) 27 U/L 13-40 eGFR (test code = 43189-5) 100.0 mL/min/1.73m2 CKD-EPI eGFR (2020). Assuming creatinine has been stable day-to-day for at least three months, the eGFR indicates Category G1 (>= 90 mL/min/1.73 m2) Lab Interpretation (test code = 90217-0) Abnormal [facility]2025-[facility] 23:05:53* Test Item Value Reference Range Interpretation Comme nts LIPASE (test code = 0018040415) 80 U/L 0-220 Lab Interpretation (test cod e = 31009-9) Normal [facility] with [id number] 23:03:30* Test Item Value Reference Range Interpretation Comme nts WBC (test code = 6690-2) 10.70 4.20-10.70 RBC (test code = 789-8) 5.23 4.26-5.52 HGB (test code = 718-7) 15.8 g/dL 12.2-16.4 HCT (test code = 4544-3) 44.0 % 38.4-49.3 MCV (test code = 787-2) 84.1 fL 81.7-95.6 MCH (test code = 785-6) 30.2 pg 26.1-32.7 MCHC (test code = 786-4) 35.9 g/dL 31.2-35.0 H RDW-SD (test code = 36042-0) 40.7 fL 38.5-51.6 RDW-CV (test code = 788-0) 13.2 % 12.1-15.4 PLT (test code = 777-3) 348 150-328 H MPV (test code = 61236-5) 9.8 fL 9.8-13.0 NRBC/100 WBC (test code = 9939704379) 0.0 0.0-10.0 NRBC x10^3 (test code = 8788927080) See_Comment [Automated messa ge] The system which generated this result transmitted reference range: 10*3/?L. The reference range was not used to interpret this result as normal/abnormal. GRAN MAT (NEUT) % (test code = 770-8) 68.7 % IMM GRAN % (test code = 4976604549) 0.30 % LYMPH % (test code = 736-9) 23.7 % MONO % (test code = 5905-5) 5.8 % EOS % (test code = 713-8) 1.0 % BASO % (test code = 706-2) 0.5 % GRAN MAT x10^3(ANC) (test code = 8114846565) 7.35 10*3/uL 1.99-6.95 H IMM GRAN x10^3 (test code = 4302820362) 0.03 10*3/uL 0.00-0.06 LYMPH x10^3 (test code = 731-0) 2.54 10*3/uL 1.09-3.23 MONO x10^3 (test code = 742-7) 0.62 10*3/uL 0.36-1.02 EOS x10^3 (test code = 711-2) 0.11 10*3/uL 0.06-0.53 BASO x10^3 (test code = 704-7) 0.05 10*3/uL 0.01-0.09 Lab Interpretation (test code = 03649-5) Abnormal [facility] Molecular [id number] 16:56:16* Test Item Value Reference Range Interpretation Comme nts POCT Molecular FluA (test co de = 53834-5) Positive Negative A Lab Interpretation (test cod e = 45338-5) Abnormal [facility] Notes Date/Time Note Provider Source 2024-12-24 14:33:14 DC hold to get meds. E Villalobos RN [facility] 2024-12-24 13:32:48 Pt is reporting pain and bloating at this time. Provider notified., [facility] 2024-12-24 12:27:42 Report received from Sandrita RAMOS. Pt pending dispo at this time. [facility] 2024-12-24 12:23:27 Report to Alex RAMOS SET WINDER OPERATOR Zainab Tadeo RN [facility] 2024-12-24 11:50:00 Pt reprots pain relief. States understanding of pending dispo from provider at this time. [facility] 2024-12-24 10:26:00 Irene Crouch is a 44 year old male to [facility] here for two months of abdominal pain, nausea, diarrhea, pt concerned for H pylori and ulcers, see assessment. Patient is alert and oriented x4, respirations are even and unlabored, PPPX4, skin warm and dry, skin color appropriate to race. Discussed plan of care with patient, comfort measures provided, call light within reach and patient verbalizes understanding of how and when to use. [facility] 2024-12-24 10:18:12 Irene Crouch is a 44 year old male presents to ED with CC of abdominal pain x2 months. Pt rates pain 10/10, reports weight loss of 30lbs, reports nausea, diarrhea and constipation. Pt is alert and oriented x4, RR are even and unlabored, skin warm, dry and appropriate in color. Pt to room for evaluation E Paulino RN [facility] 2024-12-24 10:15:00 [facility] Emergency Department Note Patient Name: Irene Crouch Date of : 1980 44 year old male [facility] Primary Care Physician: Tanya Samuel Patient Escorted by: Self [9] Mode of Arrival: Personal means [1] EMS Treatment Prior to ED Arrival: REGISTERED DIETICIAN treatment: None Travel and Exposure Screening: Symptoms Does patient have any of these symptoms?: (not recorded) Exposure Screening Has patient had contact with someone with a communicable disease in the last month?: (not recorded) Diseases exposed to:: (not recorded) Is Patient ?: (not recorded) Exposure Date: (not recorded) Chief Complaint: No chief complaint on file. History of Present Illness: 44 y/o male with 2 months of epigastric pain that is non radiating. States it came on suddenly and is constant . Rates it a 7/10. Endorses symptoms of Nausea, chills, and bloating. No vomiting or fever. Rates pain a 10/10. Pt had 30lbs weight loss in the past two months, which he attributes to reduction in food intake. Able to tolerate very specific foods- banana, avocados, peanut butter .No recent NSAID use. Stool caliber is gel like in consistency but denies any bright red blood . Denies hx of gall stones, pancreatitis, IBD. Pt was recently in ED 12/01/24 prescribed omeprazole and ondansetron on discharge which provided minimal relief. History provided by: Patient Past Medical History/Immunizations: History reviewed. No pertinent past medical history. Tetanus received in last 5 years: Unknown Childhood immunizations: Up-to-date Allergies: No Known Allergies Past Social History: Substance & Sexual Activity No substance use or sexual activity history on file. Past Surgical History: History reviewed. No pertinent surgical history. Review of Systems: Review of Systems Constitutional: Positive for appetite change and unexpected weight change. HENT: Negative. Respiratory: Negative for shortness of breath. Gastrointestinal: Positive for abdominal pain and nausea. Negative for abdominal distention, blood in stool and vomiting. Musculoskeletal: Negative. Skin: Negative for rash. Neurological: Negative. Psychiatric/Behavioral: Negative. Physical Exam: ED Triage Vitals Weight 12/24/24 1018 93.4 kg (206 lb) Actual or estimated -- Height 12/24/24 1018 1.88 m (6' 2") BP 12/24/24 1019 (!) 153/97 Pulse 12/24/24 1019 95 Resp 12/24/24 1019 18 Temp 12/24/24 1019 36.7 ?C (98 ?F) Temp src -- SpO2 12/24/24 1019 97 % Measured on 02/26/25 1018 Room air Physical Exam Constitutional: General: He is not in acute distress. HENT: Head: Normocephalic and atraumatic. Cardiovascular: Rate and Rhythm: Normal rate and regular rhythm. Heart sounds: Normal heart sounds. Pulmonary: Breath sounds: Normal breath sounds. Abdominal: General: Bowel sounds are normal. There is no distension. Palpations: Abdomen is soft. Tenderness: There is abdominal tenderness. Comments: Epigastric tenderness on light palpation Neurological: Mental Status: He is alert and oriented to person, place, and time. Psychiatric: Mood and Affect: Mood normal. Radiology: No orders to display Lab Results: Lab Results CBC WITH DIFF - Abnormal Result Value Ref Range WBC 6.15 4.20 - 10.70 10*3/?L RBC 5.13 4.26 - 5.52 10*6/?L HGB 15.0 12.2 - 16.4 g/dL HCT 42.8 38.4 - 49.3 % MCV 83.4 81.7 - 95.6 fL MCH 29.2 26.1 - 32.7 pg MCHC 35.0 31.2 - 35.0 g/dL RDW-SD 41.7 38.5 - 51.6 fL RDW-CV 13.6 12.1 - 15.4 % PLT 270 150 - 328 10*3/?L MPV 9.7 (*) 9.8 - 13.0 fL NRBC/100 WBC 0.0 0.0 - 10.0 /100 WBCs NRBC x10 3 <0.01 10*3/?L GRAN MAT (NEUT) % 68.4 % IMM GRAN % 0.30 % LYMPH % 24.9 % MONO % 5.9 % EOS % 0.3 % BASO % 0.2 % GRAN MAT x10 3 (ANC) 4.21 1.99 - 6.95 10*3/uL IMM GRAN x10 3 <0.03 0.00 - 0.06 10*3/uL LYMPH x10 3 1.53 1.09 - 3.23 10*3/uL MONO x10 3 0.36 0.36 - 1.02 10*3/uL EOS x10 3 <0.03 (*) 0.06 - 0.53 10*3/uL BASO x10 3 <0.03 0.01 - 0.09 10*3/uL COMP. METABOLIC PANEL (72542) - Abnormal NA 136 135 - 145 mmol/L K 4.2 3.5 - 5.0 mmol/L CL 96 (*) 98 - 108 mmol/L CO2 TOTAL 28 23 - 31 mmol/L AGAP 12 2 - 16 BUN 10 7 - 23 mg/dL GLUCOSE 91 70 - 110 mg/dL CREATININE 0.79 0.60 - 1.25 mg/dL TOTAL BILI 1.3 (*) 0.1 - 1.1 mg/dL CALCIUM 9.2 8.6 - 10.6 mg/dL T PROTEIN 7.5 6.3 - 8.2 g/dL ALBUMIN 4.9 3.5 - 5.0 g/dL ALK PHOS 70 34 - 122 U/L ALTv 29 5 - 50 U/L AST(SGOT) 30 13 - 40 U/L eGFR 111.0 mL/min/1.73m2 URINALYSIS - Abnormal APPEARANCE Clear Clear COLOR Colorless Colorless, Other PH 5.5 4.0 - 8.0 SP GRAVITY 1.003 <=1.030 GLU U QUAL Normal Normal, 30 mg/dL, 50 mg/dL BLOOD Negative Negative KETONES 20 mg/dL (*) Negative, Trace PROTEIN Negative Negative, 10 mg/dL, 20 mg/dL UROBILIN Normal Normal BILIRUBIN Negative Negative NITRITE Negative Negative LEUK DANG Negative Negative, 25/uL RBC/HPF <1 0 - 3 HPF WBC/HPF 0 0 - 5 HPF BACTERIA Negative Negative LIPASE - Normal LIPASE 62 0 - 220 U/L EKG: If EKG completed, see Procedure Note. Orders and Treatments: Orders Placed This Encounter Procedures CT Abdomen pelvis w contrast CBC WITH DIFF COMP. METABOLIC PANEL (42699) LIPASE URINALYSIS Orders Placed This Encounter Medications maalox/diphenhydrAMINE:lidoca ine2 %viscous 1:1:1: suspension (COMPOUNDED) famotidine (PEPCID (PF)) injection 20 mg morpHINE injection 4 mg ondansetron (ZOFRAN (PF)) injection 8 mg NaCl 0.9% (NS) IV infusion 1,000 mL iopamidol (ISOVUE 370-500 mL) injection 80 mL First Provider Eval: ED Events Date/Time Event User Comments 12/24/24 1019 Medical Screening Begins LEENA TRUONG MD -- 12/24/24 1019 First Provider Evaluation LEENA TRUONG MD -- ED COURSE Diagnosis/Impression as of 12/24/24 1155 Abdominal pain, unspecified abdominal location Procedures: Procedures MDM: Medical Decision Making 44 y/o male with 2 months of epigastric pain that is non radiating. States it came on suddenly and is constant . Rates it a 7/10. Endorses symptoms of Nausea, chills, and bloating. No vomiting or fever. Rates pain a 10/10. Pt had 30lbs weight loss in the past two months, which he attributes to reduction in food intake. Able to tolerate very specific foods- banana, avocados, peanut butter .No recent NSAID use. Stool caliber is gel like in consistency but denies any bright red blood . Denies hx of gall stones, pancreatitis, IBD. Pt was recently in ED 12/01/24 prescribed omeprazole and ondansetron on discharge which provided minimal relief. History provided by: Patient Ct Abd/ pelvis with contrast for imaging. Anti-nausea/ PPI/ Pain control/ GI cocktail given in the mean time. Labs ordered to r/o Pancreatitis, PUD/ Gastritis Would benefit from outpatient H pylori test Amount and/or Complexity of Data Reviewed Labs: ordered. Decision-making details documented in ED Course. Radiology: ordered. Decision-making details documented in ED Course. Risk Prescription drug management. Parenteral controlled substances. Flowsheet Documentation: Scoring Tools: No data recorded Disposition/Condition: ED Disposition None Discharge Medications: Patient's Medications START taking these medications No medications on file CONTINUE taking these medications which have NOT CHANGED FAMOTIDINE (PEPCID ORAL) Take by mouth. HYDRALAZINE HCL (HYDRALAZINE ORAL) Take by mouth. LOSARTAN POTASSIUM (LOSARTAN ORAL) Take by mouth. 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 Agree with findings and plan. See Dr Ko note for additional details. Persistent abdominal discomfort since influenza diagnosis in September. Seen at [facility] ED x3 in October 2024 for same. Seen at [facility] ED 12/01/24. Collective studies reviewed in Care Everywhere and [facility]. CT Chest / Abd / Pel, RUQ US, concurrent labs all unremarkable. Various prescriptions with nominal relief including omeprazole, dicyclomine, zofran, sucralfate. Has GI appointment in [place] next week. Symptomatic mgmt in ED today. (+) improved symptoms. Possible IBS type symptoms. Will start prednisone course. Keep GI clinic appointment as planned next week. Leena Truong MD, [facility] Emergency Medicine [facility] 2024-12-01 21:33:36 Pt. Provided d/c instructions, f/u instructions, prescription drug use x1; pt. Verbalized understanding; IV access d/c with bleeding controlled, pressure applied, no S&S of infiltration or phlebitis, catheter intact; no apparent S&S of distress noticed at d/c; pt. Ambulates with steady gait E Gonzalez RN [facility] 2024-12-01 15:19:00 Patient came in with abdominal pressure and diarrhea since 2 weeks accompanied by nausea. States he was admitted in [facility] last week and got hospitalized for 2 days for the same thing. States he tested positive for flu 3 weeks ago. E Cortez RN [facility]
[2025-01-01] MEDS ORDERED: NA CHLORIDE 0.9% 1,000 ML ONE ×2 (08:17→20:35)
[2025-01-01] MEDS ORDERED: ONDANSETRON 4 MG/2 ML VIAL ONE (08:17)
[2025-01-01 08:26] LABS: Absolute Basophils 0.1 K/uL (0-0.5); Absolute Eosinophils 0.1 K/uL (0-0.5); Absolute Lymphocytes (CBC) 1.9 K/uL (0.7-4.9); Absolute Monocytes 0.6 K/uL (0.1-1.3); Absolute Neutrophil 7.2 K/uL (1.8-8.0); Basophils % 0.6 % (0-1.3); Eosinophils % 1.3 % (0-4.4); Hematocrit 46.8 % (39.6-49.0); Hemoglobin 16.1 g/dL (13.6-17.9); MCH 29.5 pg (27.0-35.0); MCHC 34.3 g/dL (32.0-36.0); MCV 86.1 fL (80-100); MPV 7.6 fL (7.6-11.3); Monocytes % 6.5 % (3.3-12.3); Neutrophils % 72.6 % (41.7-73.7); Nucleated Red Blood Cells % 0.4 % (0-0); Platelets 365 thou/uL (152-406); RBC Red Blood Cell Count 5.44 M/uL (4.33-5.43); Red Cell Distribution Width 14.8 % (12.1-15.2)
[2025-01-01 08:47] LABS: Albumin 4.4 g/dL (3.4-5.0); Albumin/Globulin Ratio 1.3 (1.1-1.8); Anion Gap 10.7 mEq/L (5.0-15.0); Bilirubin Direct 0.3 mg/dL (0-0.2); Bilirubin Indirect, Calculated 0.8 mg/dL (0.2-0.8); Bilirubin Total 1.1 mg/dL (0.2-1.0); Globulin 3.5 g/dL (2.3-3.5); Magnesium 2.3 mg/dL (1.6-2.4); Potassium 3.7 mEq/L (3.5-5.1); Protein, Total 7.9 g/dL (6.4-8.2); Troponin High Sensitivity 9.3 pg/mL (<58.9)
--- NOTE | 2025-01-01 08:48 | RAD REPORT ---
Procedure: Chest Single View HISTORY: Cough COMPARISON: October 2024 FINDINGS: The lungs appear clear of acute infiltrate. No significant pleural effusion noted. The heart is normal size. Patient's known thoracic aortic aneurysm not well visualized on this exam IMPRESSION: No acute abnormality is displayed.
[2025-01-01 08:51] LABS: Specific Gravity 1.005 (1.005-1.030); Urine Bilirubin NEGATIVE (Negative); Urine Blood Negative (Negative); Urine Clarity Clear (Clear); Urine Color Colorless (Yellow); Urine Glucose NEGATIVE (Negative); Urine Ketones NEGATIVE (Negative); Urine Microscopic Reflex YN NO UMIC; Urine Nitrite NEGATIVE (Negative); Urine Protein NEGATIVE (Negative); Urine Urobilinogen Normal (Normal)
--- NOTE | 2025-01-01 10:07 | ER ---
Nurse's Notes [facility] Name: Kory Her Age: 44 yrs Sex: Male : 1980 Arrival Date: 01/01/2025 Time: 07:30 Bed 25 Private MD: Diagnosis: Weakness-non ambulatory;Nausea;Anorexia Presentation: 01/01 07:44 Chief complaint: Patient states: has had gastritis for 2 months, my arms and legs are iw going numb, I'm feeling extremely week X 4 days , can only eat or drink shakes , I lost 40 lbs , it takes a lot to be able to keep anything, he had a scope earlier this week with Dr. Rosen. Coronavirus screen: At this time, the client does not indicate any symptoms associated with coronavirus-19. Ebola Screen: No symptoms or risks identified at this time. Initial Sepsis Screen: Does the patient meet any 2 criteria? HR > 90 bpm. Does the patient have a suspected source of infection? No. Patient's initial sepsis screen is negative. Risk Assessment: Do you want to hurt yourself or someone else? Patient reports no desire to harm self or others. Onset of symptoms was October 2024. 07:44 Method Of Arrival: Wheelchair iw 07:44 Acuity: JAMES 3 iw Triage Assessment: 07:49 General: Appears uncomfortable, ill, Behavior is anxious, restless. Pain: Denies pain. iw GI: Reports nausea. Historical: - Allergies: 07:47 No Known Allergies; iw - Home Meds: 07:47 losartan 50 mg oral tablet 2 times per day [Active]; amitriptyline 10 mg Oral tablet iw every day at bedtime [Active]; ondansetron HCl 4 mg Oral tablet [Active]; - PMHx: 07:47 Atrial Fib; Hypertension; iw 07:47 gastritis; iw - PSHx: 07:47 None; iw - Immunization history:: Adult Immunizations not up to date. - Infectious Disease History:: Denies. - Social history:: Smoking status: Patient/guardian denies using tobacco, Stopped _ months ago 3. Screenin:50 [facility] ED Fall Risk Assessment (Adult) History of falling in the last 3 months, iw including since admission No falls in past 3 months (0 pts) Confusion or Disorientation No (0 pts) Intoxicated or Sedated No (0 pts) Impaired Gait Yes (1 pt) Mobility Assist Device Used No (0 pt) Altered Elimination No (0 pt) Score/Fall Risk Level 0 - 2 = Low Risk Oriented to surroundings, Maintained a safe environment. Abuse screen: Denies threats or abuse. Nutritional screening: Has had N/V for 3 or more days. Tuberculosis screening: No symptoms or risk factors identified. Assessment: 08:03 General: Appears uncomfortable, Behavior is cooperative, anxious, restless. Pain: iw Denies pain. Neuro: Level of Consciousness is awake, alert, obeys commands, Oriented to person, place, time, situation, Moves all extremities. Cardiovascular: Patient's skin is warm and dry. GI: Abdomen is flat, non-distended, Reports nausea. 10:07 Reassessment: Patient appears in no apparent distress at this time. Patient and/or iw family updated on plan of care and expected duration. Pain level reassessed. Patient is alert, oriented x 3, equal unlabored respirations, skin warm/dry/pink. 11:37 Reassessment: pt states he is still feeling very weak, cannot walk to be discharged, iw Dr. Hill notified , will reassess pt. Vital Signs: 07:44 BP 135 / 99; Pulse 101; Resp 19; Temp 97.2; Pulse Ox 96% on R/A; Weight 90.26 kg; iw Height 6 ft. 2 in. ; Pain 0/10; 10:07 BP 141 / 74; Pulse 74; Resp 16; Pulse Ox 100% on R/A; iw 13:20 BP 161 / 95; Pulse 71; Resp 16; Pulse Ox 99% on R/A; me1 14:00 BP 158 / 86; Pulse 72; Resp 16; Pulse Ox 100% ; me1 15:00 BP 160 / 89; Pulse 73; Resp 17; Pulse Ox 100% ; me1 16:00 BP 151 / 92; Pulse 63; Resp 16; Pulse Ox 98% ; me1 17:00 BP 132 / 97; Pulse 79; Resp 15; Pulse Ox 95% ; me1 07:44 Body Mass Index 25.55 (90.26 kg, 187.96 cm) iw 07:44 Pain Scale: Adult iw ED Course: 07:33 Patient arrived in ED. cj3 07:34 Igor Hill MD is Attending Physician. dave 07:47 Triage completed. iw 07:49 Arm band placed on. iw 08:06 Diamante Vega, RICHARD is Primary Nurse. iw 08:21 Initial lab(s) drawn, by me, sent to lab. Inserted saline lock: 20 gauge in right zm wrist, using aseptic technique. Blood collected. Flushed with 10 mL NS. 08:22 Basic Metabolic Panel Sent. zm 08:22 CBC with Diff Sent. zm 08:22 LFT's Sent. zm 08:22 Magnesium Sent. zm 08:22 NT PRO-BNP Sent. zm 08:22 Troponin HS Sent. zm 08:22 Lipase Sent. zm 08:28 XRAY Chest (1 view) In Process Unspecified. EDMS 08:50 Patient has correct armband on for positive identification. Provided Education on: . iw Client placed on continuous cardiac and pulse oximetry monitoring. NIBP monitoring applied. cafeteria monitor on. 10:05 Luke Rosen MD is Referral Physician. dave 10:31 COVID-19 Ag + Flu A+B Ag Sent. zm 10:32 Diet: Patient given water. Tolerated well PO Challenge. zm 11:49 Nicholas Livingston is Hospitalizing Provider. dave 12:00 Chest Abdomen Pelvis W Cont In Process Unspecified. EDMS 12:00 Head C Spine Mpr Wo Con In Process Unspecified. EDMS 17:46 Patient admitted, IV remains in place. me1 17:46 No provider procedures requiring assistance completed. me1 Administered Medications: 08:43 Drug: NS 0.9% IV 1000 ml IV at 1000 ml once; to be given as a bolus over 60 minutes iw Route: IV; Rate: 1000 ml; Site: right wrist; 13:51 Follow up: IV Status: Completed infusion me1 08:43 Drug: Ondansetron IVP 4 mg IVP once; over 2 minutes Route: IVP; Site: right wrist; iw 13:43 Follow up: Response: No adverse reaction me1 11:34 Drug: Pantoprazole IVP 40 mg IVP once Route: IVP; Site: right antecubital; iw 13:43 Follow up: Response: No adverse reaction me1 13:23 Drug: Magnesium Sulfate IVPB 1 grams IVPB once over 1 hrs Route: IVPB; Infused Over: 1 iw hrs; Site: right wrist; 14:23 Follow up: Response: No adverse reaction; IV Status: Completed infusion me1 13:24 Drug: Thiamine IV 100 mg IV at bolus once Route: IV; Rate: bolus; Site: right wrist; iw 13:43 Follow up: IV Status: Completed infusion me1 14:24 Drug: Banana Bag - (Multivitamin IV 1 amp, NS 0.9% IV 1000 ml, Thiamine IV 100 mg, me1 foLIC Acid IVPB 1 mg) IV at 125 ml/hr once Route: IV; Rate: 125 ml/hr; Site: right antecubital; 17:29 Follow up: Response: No adverse reaction; IV Status: Completed infusion me1 Medication: 13:52 VIS not applicable for this client. me1 Outcome: 10:06 Discharge ordered by . [facility] 11:52 Decision to Hospitalize by Provider. [facility] 17:46 Admitted to ER Hold. Please see [facility] for further documentation. me1 17:46 Condition: stable 17:46 Instructed on the need for admit, 21:31 Admitted to Med/surg accompanied by tech, via wheelchair, room 218, me1 21:31 Condition: stable 21:31 Instructed on the need for admit, 22:13 Patient left the ED. me1 Signatures: Dispatcher [employer] Igor Amin MD MD cha Williams, Irene, Martha Wen RN, Michelle, RN RN wi1 Dennise Matute 3
--- NOTE | 2025-01-01 10:07 | EDPHYS ---
Physician Documentation [facility] Name: Kory Her Age: 44 yrs Sex: Male : 1980 Arrival Date: 01/01/2025 Time: 07:30 Bed 25 Private MD: TONO Physician Igor Hill HPI: 01/01 10:01 This 44 yrs old Male presents to ER via Wheelchair with complaints of General dave Weakness, Nausea, Shaking, Weight Loss. 10:01 The patient presents to the emergency department with nausea, vomiting, that is dave intermittent. Onset: The symptoms/episode began/occurred 3 day(s) ago. Possible causes: flare up of bowel problem, gastritis. Associated signs and symptoms: The patient has no apparent associated signs or symptoms. Severity of symptoms: At their worst the symptoms were mild in the emergency department the symptoms are unchanged. The patient has experienced similar episodes in the past, multiple times. Historical: - Allergies: 07:47 No Known Allergies; iw - Home Meds: 07:47 losartan 50 mg oral tablet 2 times per day [Active]; amitriptyline 10 mg Oral tablet iw every day at bedtime [Active]; ondansetron HCl 4 mg Oral tablet [Active]; - PMHx: 07:47 Atrial Fib; Hypertension; iw 07:47 gastritis; iw - PSHx: 07:47 None; iw - Immunization history:: Adult Immunizations not up to date. - Infectious Disease History:: Denies. - Social history:: Smoking status: Patient/guardian denies using tobacco, Stopped _ months ago 3. ROS: 10:02 Constitutional: Negative for fever, chills, and weight loss, Eyes: Negative for injury, dave pain, redness, and discharge, ENT: Negative for injury, pain, and discharge, Neck: Negative for injury, pain, and swelling, Cardiovascular: Negative for chest pain, palpitations, and edema, Respiratory: Negative for shortness of breath, cough, wheezing, and pleuritic chest pain, Back: Negative for injury and pain, : Negative for injury, bleeding, discharge, and swelling, MS/Extremity: Negative for injury and deformity, Skin: Negative for injury, rash, and discoloration, Psych: Negative for depression, anxiety, suicide ideation, homicidal ideation, and hallucinations, Allergy/Immunology: Negative for hives, rash, and allergies, Endocrine: Negative for neck swelling, polydipsia, polyuria, polyphagia, and marked weight changes, Hematologic/Lymphatic: Negative for swollen nodes, abnormal bleeding, and unusual bruising, 10:02 Abdomen/GI: Positive for nausea and vomiting, 10:02 Neuro: Positive for weakness, dave Exam: 10:02 Constitutional: This is a well developed, well nourished patient who is awake, alert, dave and in no acute distress. Head/Face: Normocephalic, atraumatic. Eyes: Pupils equal round and reactive to light, extra-ocular motions intact. Lids and lashes normal. Conjunctiva and sclera are non-icteric and not injected. Cornea within normal limits. Periorbital areas with no swelling, redness, or edema. ENT: Nares patent. No nasal discharge, no septal abnormalities noted. Tympanic membranes are normal and external auditory canals are clear. Oropharynx with no redness, swelling, or masses, exudates, or evidence of obstruction, uvula midline. Mucous membranes moist. Neck: Trachea midline, no thyromegaly or masses palpated, and no cervical lymphadenopathy. Supple, full range of motion without nuchal rigidity, or vertebral point tenderness. No Meningismus. Chest/axilla: Normal chest wall appearance and motion. Nontender with no deformity. No lesions are appreciated. Cardiovascular: Regular rate and rhythm with a normal S1 and S2. No gallops, murmurs, or rubs. Normal PMI, no JVD. No pulse deficits. Respiratory: Lungs have equal breath sounds bilaterally, clear to auscultation and percussion. No rales, rhonchi or wheezes noted. No increased work of breathing, no retractions or nasal flaring. Back: No spinal tenderness. No costovertebral tenderness. Full range of motion. Male : Normal genitalia with no discharge or lesions. Skin: Warm, dry with normal turgor. Normal color with no rashes, no lesions, and no evidence of cellulitis. MS/ Extremity: Pulses equal, no cyanosis. Neurovascular intact. Full, normal range of motion., bilateral aka Neuro: Awake and alert, GCS 15, oriented to person, place, time, and situation. Cranial nerves II-XII grossly intact. Motor strength 5/5 in all extremities. Sensory grossly intact. Cerebellar exam normal. Normal gait. Psych: Awake, alert, with orientation to person, place and time. Behavior, mood, and affect are within normal limits. 10:02 ECG was reviewed by the Attending Physician. 10:02 Abdomen/GI: Inspection: abdomen appears normal, Bowel sounds: normal, Palpation: mild abdominal tenderness, in the epigastric area, Liver: no appreciated palpable abnormalities, Hernia: not appreciated, Vital Signs: 07:44 BP 135 / 99; Pulse 101; Resp 19; Temp 97.2; Pulse Ox 96% on R/A; Weight 90.26 kg; iw Height 6 ft. 2 in. ; Pain 0/10; 10:07 BP 141 / 74; Pulse 74; Resp 16; Pulse Ox 100% on R/A; iw 13:20 BP 161 / 95; Pulse 71; Resp 16; Pulse Ox 99% on R/A; me1 14:00 BP 158 / 86; Pulse 72; Resp 16; Pulse Ox 100% ; me1 15:00 BP 160 / 89; Pulse 73; Resp 17; Pulse Ox 100% ; me1 16:00 BP 151 / 92; Pulse 63; Resp 16; Pulse Ox 98% ; me1 17:00 BP 132 / 97; Pulse 79; Resp 15; Pulse Ox 95% ; me1 07:44 Body Mass Index 25.55 (90.26 kg, 187.96 cm) iw 07:44 Pain Scale: Adult iw MDM: 07:34 Medical Screening Exam initiated dave 10:04 Differential diagnosis: Nonspecific abd pain, gastritis, cholecystitis, pancreatitis, dave appendicitis, diverticulitis, viral gastroenteritis, gastroenteritis. Data reviewed: vital signs, nurses notes, lab test result(s), EKG, radiologic studies, plain films. Consideration of Admission/Observation Escalation of care including admission/observation considered. I considered the following discharge prescriptions or medication management in the emergency department Medications were administered in the Emergency Department. See MAR. Independent interpretation of the following test(s) in the Emergency Department EKG: See my EKG interpretation above. Test considered but Not performed: CT: no ct abd pelvis. Historians other than the Patient: Friend: friend well informed. Care significantly affected by the following chronic conditions: Hypertension, a fib, gastritis. Counseling: I had a detailed discussion with the patient and/or guardian regarding the historical points, exam findings, and any diagnostic results supporting the discharge/admit diagnosis, lab results, radiology results, the need for outpatient follow up, for definitive care, a family practitioner, a ticket taker. 01/01 07:37 Order name: Basic Metabolic Panel; Complete Time: 09:56 [facility] 01/01 07:37 Order name: CBC with Diff; Complete Time: 09:56 [facility] 01/01 07:37 Order name: LFT's; Complete Time: 09:56 [facility] 01/01 07:37 Order name: Magnesium; Complete Time: 09:56 [facility] 01/01 07:37 Order name: NT PRO-BNP; Complete Time: 09:56 [facility] 01/01 07:37 Order name: Troponin HS; Complete Time: 09:56 [facility] 01/01 07:37 Order name: Lipase; Complete Time: 09:56 [facility] 01/01 07:37 Order name: COVID-19 Ag + Flu A+B Ag; Complete Time: 13:48 [facility] 01/01 07:37 Order name: Urinalysis w/ reflexes; Complete Time: 09:56 [facility] 01/01 13:20 Order name: T4 Free EDMS 01/01 13:20 Order name: Thyroid Stimulating Hormone EDMS 01/01 13:20 Order name: Urinalysis w/ reflexes EDMS 01/01 13:20 Order name: Basic Metabolic Panel EDMS 01/01 13:20 Order name: Basic Metabolic Panel EDMS 01/01 13:20 Order name: Basic Metabolic Panel EDMS 01/01 13:20 Order name: Basic Metabolic Panel EDMS 01/01 13:20 Order name: CBC with Automated Diff EDMS 01/01 13:20 Order name: CBC with Automated Diff EDMS 01/01 13:20 Order name: CBC with Automated Diff EDMS 01/01 13:20 Order name: CBC with Automated Diff EDMS 01/01 13:20 Order name: Cortisol EDMS 01/01 13:20 Order name: Cortisol EDMS 01/01 13:20 Order name: Lipid Profile ED[facility] 01/01 13:20 Order name: Lipid Profile ED[facility] 01/01 13:20 Order name: Magnesium EDMS 01/01 13:20 Order name: Magnesium EDMS 01/01 13:20 Order name: Magnesium EDMS 01/01 13:20 Order name: Magnesium EDMS 01/01 13:20 Order name: Phosphorus EDMS 01/01 13:20 Order name: Phosphorus EDMS 01/01 13:20 Order name: Phosphorus [facility] 01/01 13:20 Order name: Phosphorus ED[facility] 01/01 13:20 Order name: Troponin High Sensitivity [facility] 01/01 13:20 Order name: Troponin High Sensitivity [facility] 01/01 13:20 Order name: Troponin High Sensitivity [facility] 01/01 07:37 Order name: XRAY Chest (1 view); Complete Time: 09:56 [facility] 01/01 11:42 Order name: Echo w/ Doppler [facility] 01/01 11:42 Order name: Chest Abdomen Pelvis W Cont; Complete Time: 13:48 [facility] 01/01 11:43 Order name: Head C Spine Mpr Wo Con; Complete Time: 13:48 [facility] 01/01 13:20 Order name: Physical Therapy Consult [facility] 01/01 07:37 Order name: Cardiac monitoring; Complete Time: 08:06 [facility] 01/01 07:37 Order name: EKG - Nurse/Tech; Complete Time: 08:03 [facility] 01/01 07:37 Order name: IV Saline Lock; Complete Time: 08:06 [facility] 01/01 07:37 Order name: Labs collected and sent; Complete Time: 08:06 [facility] 01/01 07:37 Order name: O2 Per Protocol; Complete Time: 08:06 [facility] 01/01 07:37 Order name: O2 Sat Monitoring; Complete Time: 08:06 [facility] 01/01 09:58 Order name: PO challenge; Complete Time: 10:31 [facility] EC:02 Rate is 94 beats/min. Rhythm is regular. QRS [place] is Normal. DE interval is normal. QRS dave interval is normal. QT interval is normal. No Q waves. T waves are Normal. No ST changes noted. Clinical impression: NSR w/ Non-specific ST/T Changes and No evidence of ischemia. Interpreted by me. Reviewed by me. Administered Medications: 08:43 Drug: NS 0.9% IV 1000 ml IV at 1000 ml once; to be given as a bolus over 60 minutes iw Route: IV; Rate: 1000 ml; Site: right wrist; 13:51 Follow up: IV Status: Completed infusion me1 08:43 Drug: Ondansetron IVP 4 mg IVP once; over 2 minutes Route: IVP; Site: right wrist; iw 13:43 Follow up: Response: No adverse reaction me1 11:34 Drug: Pantoprazole IVP 40 mg IVP once Route: IVP; Site: right antecubital; iw 13:43 Follow up: Response: No adverse reaction me1 13:23 Drug: Magnesium Sulfate IVPB 1 grams IVPB once over 1 hrs Route: IVPB; Infused Over: 1 iw hrs; Site: right wrist; 14:23 Follow up: Response: No adverse reaction; IV Status: Completed infusion me1 13:24 Drug: Thiamine IV 100 mg IV at bolus once Route: IV; Rate: bolus; Site: right wrist; iw 13:43 Follow up: IV Status: Completed infusion me1 14:24 Drug: Banana Bag - (Multivitamin IV 1 amp, NS 0.9% IV 1000 ml, Thiamine IV 100 mg, me1 foLIC Acid IVPB 1 mg) IV at 125 ml/hr once Route: IV; Rate: 125 ml/hr; Site: right antecubital; 17:29 Follow up: Response: No adverse reaction; IV Status: Completed infusion me1 Disposition Summary: 01/01/25 11:52 Hospitalization Ordered Notes: Hospitalization Status: Observation dave Provider: Nicholas Livingston cha Condition: Fair(01/01/25 11:52) dave Problem: new(01/01/25 11:52) dave Symptoms: have improved(01/01/25 11:52) dave Bed/Room Type: Standard dave Location: Telemetry/MedSurg (Inpatient)(01/01/25 21:04) vk Room Assignment: 218(01/01/25 21:04) vk Diagnosis - Weakness - non ambulatory(01/01/25 11:52) dave - Nausea dave - Anorexia dave Forms: - Medication Reconciliation Form dave - SBAR form dave - Leadership Thank You Letter dave Signatures: Dispatcher [employer] Igor Amin MD MD cha Williams, Irene RN Ning Nuñez RN RN [id number] Ruma Lara RN RN Michelle Wylie vk Corrections: (The following items were deleted from the chart) 07:37 07:37 BASIC METABOLIC PANEL+C.LAB.BRZ ordered. EDMS EDMS 07:37 07:37 CBC+H.LAB.BRZ ordered. EDMS EDMS 07:37 07:37 HEPATIC FUNCTION+C.LAB.BRZ ordered. EDMS EDMS 07:37 07:37 MAGNESIUM+C.LAB.BRZ ordered. EDMS EDMS 07:37 07:37 PROBNP+C.LAB.BRZ ordered. EDMS EDMS 07:37 07:37 Troponin High Sensitivity+C.LAB.BRZ ordered. EDMS EDMS 07:37 07:37 LIPASE+C.LAB.BRZ ordered. EDMS EDMS 07:37 07:37 COVID-19 Ag + Flu A+B Ag+I.LAB.BRZ ordered. EDMS EDMS 07:37 07:37 Urinalysis+U.LAB.BRZ ordered. EDMS EDMS 07:37 07:37 Chest Single View+RAD.RAD.BRZ ordered. EDMS EDMS 11:38 10:06 Home dave dave 11:38 10:06 new dave dave 11:38 10:06 have improved dave dave 11:38 10:06 Stable dave dave 11:38 10:06 Weakness dave dave 11:38 10:06 Vomiting dave dave 11:38 10:06 Acute gastritis without bleeding dave dave 11:41 11:39 Head C Spine CAP W Con+CT.RAD.BRZ ordered. EDMS EDMS 15:20 11:52 Telemetry/MedSurg (observation) dave kb3 15:20 11:52 dave kb3 21:04 15:20 [facility] ER HOLD kb3 vk 21:04 15:20 ERHOLD- kb3 vk
[2025-01-01 10:52] LABS: Influenza A Ag Negative; Influenza B Ag Negative; SARS-CoV-2 Antigen Rapid Res Negative (Negative)
[2025-01-01] MEDS ORDERED: PANTOPRAZOLE 40 MG INJ ONE ×2 (11:14→21:08)
--- NOTE | 2025-01-01 12:14 | RAD REPORT ---
EXAMINATION: CT HEAD WITHOUT CONTRAST CT CERVICAL SPINE WITHOUT CONTRAST CLINICAL INDICATION: Dizziness. Neck pain TECHNIQUE: Axial CT images from the skull base to the vertex without intravenous contrast. Axial CT i mages through the cervical spine were obtained without intravenous contrast. Sagittal and coronal reformatted images were created from the data set. Coronal and sagittal reformatted images were creat ed from the data set. One or more of the following dose reduction techniques were used: Automated exposure control, adjustment of the mA and/or kV according to patient size, and/or iterative reconstr uction. Unless otherwise specified, incidental findings do not require dedicated imaging follow-up. [id number]. Comparison: 2019 FINDINGS: An intracranial bleed is not seen. Ventricles are normal in caliber. No significant hypodensity within the brain No extra-axial fluid collection. No fluid within the sinuses/mastoids No fracture or dislocation is seen involving the cervical spine. Spondylosis C5-6 and C6-7 results in moderate right foraminal stenosis IMPRESSION: No acute intracranial abnormality noted A cervical fracture is not seen. 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
--- NOTE | 2025-01-01 12:22 | RAD REPORT ---
EXAM: Chest Abdomen Pelvis W Cont CLINICAL INDICATION: Chest and abdominal pain TECHNIQUE: CT chest, abdomen and pelvis was performed, with 100 cc Isovue-300 IV contrast, as per de partment protocol. Axial, sagittal and coronal reconstructions were obtained. One or more of the following dose reduction techniques were used: Automated exposure control, adjustment of the mA and/o r kV according to the patient size, and/or iterative reconstruction. Unless otherwise specified, incidental findings do not require dedicated imaging follow-up. [id number]. Oral contrast not given. This limits evaluation of the bowel. COMPARISON: None FINDINGS: The lungs are clear. No mediastinal or hilar lymphadenopathy. No pleural effusion.. No pericardial effusion Liver, spleen, pancreas, adrenals, kidneys and bladder appear unremarkable. There is no evidence of diverticulitis IMPRESSION: No significant abnormalities displayed
[2025-01-01] MEDS ORDERED: THIAMINE 200 MG/2 ML INJ ONE (12:48)
[2025-01-01] MEDS ORDERED: MAGNESIUM SULFATE 1 gm IVPB 1 GM/100 ML BAG IV ONE (12:49)
[2025-01-01] MEDS: FOLIC ACID 1 MG, MULTIVITAMINS INJ 10 ML, THIAMINE HCL 100 MG in NA CHLORIDE 0.9% 1,000 ML IV ONE (13:00)
[2025-01-01] MEDS ORDERED: SODIUM CHLORIDE 0.9% 10ML INJ IV PRN (13:12)
[2025-01-01] MEDS: PANTOPRAZOLE 40 MG INJ IVP SCH (13:17)
--- NOTE | 2025-01-01 13:27 | P.HP ---
Certification for Inpatient Patient admitted to: Observation With expected LOS: <2 Midnights Patient will require the following post-hospital care: None Practitioner: I am a practitioner with admitting privileges, knowledge of patient current condition, hospital course, and medical plan of care. Services: Services provided to patient in accordance with Admission requirements found in Title 42 Section 412.3 of the Code of Federal Regulations Patient History Date of Service: 01/01/25 Reason for admission: Weakness, recent weight loss History of Present Illness: Kory Her is a 44 year old male with Pmhx Atrial Fib, Hypertension, anxiety, gastritis presents to the ED with chief complaint of new onset weakness after a 40 pound weight loss in two months. He reports seeing Dr. Rosen and being diagnosed with gastritis. He woke up this morning shaking, and unable to walk out of the house due to sudden onset of weakness. On examination, raising his arms and legs tremors are present, no abdominal pain to palpation. He reports normal bowel movements and denies fever and chills. Laboratory evaluation significant for sodium 133, T. bili 1.1, direct bili 0.3. CT head and cervical spine report "No acute intracranial abnormality noted. A cervical fracture is not seen." CT CAP Reports "No significant abnormalities displayed" Chest xray reports "No acute abnormality is displayed." Kory will be admitted to hospitalist service for evaluation of generalized weakness. Allergies No Known Allergies Allergy (Verified 07/17/16 17:54) Home Medications: Dicyclomine [Bentyl*] 20 mg PO TIDP PRN 11/25/24 Losartan/Hydrochlorothiazide [Hyzaar 100-25 Tablet] 1 tab PO DAILY 11/25/24 Ondansetron [Zofran (Odt)*] 4 mg PO Q6HP PRN 11/25/24 Simethicone [Gas Relief] 80 mg PO Q6HP PRN 11/25/24 hydrOXYzine HCL [Atarax*] 25 mg PO Q8HP PRN 11/25/24 LORazepam [Ativan] 0.5 mg PO Q6H PRN #10 tab 11/26/24 Pantoprazole [Protonix Tab] 40 mg PO DAILY #30 tab 11/26/24 Sucralfate [Carafate*] 10 ml PO ACHS #1200 ml 11/26/24 - Past Medical/Surgical History Diabetic: No -: htn -: a fib -: gastritis -: breast repair - Family History Father -: Heart disease, Hypertension, Cancer, Other (see notes) Notes: prostate cancer Mother -: Heart disease - Social History Smoking Status: Former smoker Alcohol use: Yes CD- Drugs: No Caffeine use: Yes Review of Systems Other: Per HPI Physical Examination - Physical Exam General: Alert, In no apparent distress, Oriented x3 HEENT: Atraumatic, Normocephalic Neck: Supple, 2+ carotid pulse no bruit Respiratory: Normal air movement Cardiovascular: Normal pulses, Regular rate/rhythm, Normal S1 S2 Capillary refill: <2 Seconds Gastrointestinal: Normal bowel sounds, Soft and benign Musculoskeletal: No clubbing Integumentary: No rashes, Other Neurological: Normal speech, Normal tone, Other (weakness) Other Physical/Emotional Findings: Tearful, anxious - Studies Laboratory Data (last 24 hrs) 01/01/25 01/01/25 08:00 08:00 WBC 9.90 Hgb 16.1 Hct 46.8 Plt Count 365 Sodium 133 L Potassium 3.7 BUN 8 Creatinine 1.04 Glucose 109 H Magnesium 2.3 Total Bilirubin 1.1 H AST 21 ALT 72 H Alkaline Phosphatase 76 Lipase 57 Assessment and Plan - Plan Assessment and Plan Generalized weakness Anorexia with weight loss History of gastritis -Reports 40 pound weight loss in 2 months -follows with Dr. Rosen -Protonix BID -Carafate PRN -CLD and advance to FLD with protein shakes -Pysical therapy consulted -Encourage ambulation HTN Afib Anxiety -continue home medications DVT ppx SCD Full code LOS 24 hour OBS Discharge Plan: Home Plan to discharge in: 24 Hours - Advance Directives Does patient have a Living Will: No Does patient have a Durable POA for Healthcare: No
[2025-01-01] MEDS: NA CHLORIDE 0.9% 1,000 ML IV SCH (14:00)
[2025-01-01 22:30] VITALS: O2SAT 95
[2025-01-01] MEDS: ACETAMINOPHEN 325 MG TABLET PO PRN (23:10)
[2025-01-02] MEDS: ALPRAZOLAM 0.25 MG TABLET PO ONE (00:24)
[2025-01-02 04:49] LABS: Absolute Basophils 0.1 K/uL (0-0.5); Absolute Eosinophils 0.2 K/uL (0-0.5); Absolute Lymphocytes (CBC) 2.3 K/uL (0.7-4.9); Absolute Monocytes 0.6 K/uL (0.1-1.3); Absolute Neutrophil 4.9 K/uL (1.8-8.0); Basophils % 0.7 % (0-1.3); Eosinophils % 2.6 % (0-4.4); Hematocrit 36.9 % (39.6-49.0); Hemoglobin 13.1 g/dL (13.6-17.9); Lymphocytes % 28.1 % (15.3-44.8); MCH 30.4 pg (27.0-35.0); MCHC 35.5 g/dL (32.0-36.0); MCV 85.4 fL (80-100); Monocytes % 7.5 % (3.3-12.3); Neutrophils % 61.1 % (41.7-73.7); Nucleated Red Blood Cells % 0.1 % (0-0); Platelets 305 thou/uL (152-406); RBC Red Blood Cell Count 4.31 M/uL (4.33-5.43); Red Cell Distribution Width 14.6 % (12.1-15.2)
[2025-01-02 05:18] LABS: Anion Gap 8.5 mEq/L (5.0-15.0); Magnesium 2.4 mg/dL (1.6-2.4); Phosphorus 3.7 mg/dL (2.5-4.9); Potassium 3.5 mEq/L (3.5-5.1); Thyroid Stimulating Hormone 1.14 uIU/mL (0.358-3.740)
--- NOTE | 2025-01-02 06:41 | ECHO ---
HEIGHT: 6 ft 2 in WEIGHT: 198 lb 15.828 oz DATE OF STUDY: 01/01/[address]: Igor Hill MD 2-DIMENSIONAL: YES M.MODE: YES DOPPLER: YES COLOR FLOW: YES TDS: YES PORTABLE: YES DEFINITY: BUBBLE STUDY: DIAGNOSIS: DILATED AORTA CARDIAC HISTORY: CATHERIZATION: NO SURGERY: NO PROSTHETIC VALVE: NO PACEMAKER: NO MEASUREMENTS (cm) DIASTOLIC (NORMALS) SYSTOLIC (NORMALS) IVSd 0.9 (0.6-1.2) LA Diam 3.2 (1.9-4.0) LVEF 60-65% LVIDd 4.0 (3.5-5.7) LVIDs 2.8 (2.0-3.5) %FS 30% LVPWd 0.9 (0.6-1.2) Ao Diam 3.1 (2.0-3.7) 2 DIMENSIONAL ASSESSMENT: RIGHT ATRIUM: NORMAL LEFT ATRIUM: NORMAL RIGHT VENTRICLE: NORMAL LEFT VENTRICLE: NORMAL TRICUSPID VALVE: NORMAL MITRAL VALVE: NORMAL PULMONIC VALVE: NORMAL AORTIC VALVE: NOT WELL VISUALIZED PERICARDIAL EFFUSION: NONE AORTIC ROOT: NORMAL LEFT VENTRICULAR WALL MOTION: NORMAL DOPPLER/COLOR FLOW: NORMAL COMMENTS: 1. NORMAL LEFT VENTRICULAR SYSTOLIC FUNCTION, EJECTION FRACTION 60-65%, NORMAL WALL MOTION 2. NORMAL DIASTOLIC FUNCTION 3. MILDLY DILATED ACCESENDING AORTA (MEASURES 4.0 CENTIMETERS IN DIAMETER), NO CHANGE COMPAIRED TO PRIOR STUDY. TECHNOLOGIST: ION SANTIAGO
[2025-01-02] MEDS: METOPROLOL XL 25 MG TAB PO SCH (09:52)
[2025-01-02] MEDS: Magnesium Sulfate 2gm IVPB 2 G/50 ML BAG IV ONE ×2 (12:12→14:30)
[2025-01-02] MEDS ORDERED: HYDROCHLOROTHIAZIDE PO SCH (14:38)
[2025-01-02] MEDS ORDERED: LOSARTAN PO SCH (14:38)
[2025-01-02] MEDS: SUCRALFATE 1GM/10ML UCUP PO SCH (15:15)
[2025-01-02] MEDS ORDERED: SUCRALFATE 1GM/10ML UCUP PO SCH ×2 (16:30)
[2025-01-02 16:52] VITALS: BP 137/75; TEMP 97.5
[2025-01-02] MEDS: PANTOPRAZOLE 40MG TABLET PO SCH (16:54)
--- NOTE | 2025-01-02 17:48 | P.DS ---
Admission Date: 01/01/25 Discharge Date: 01/02/25 Disposition: ROUTINE DISCHARGE Discharge Condition: FAIR Reason for Admission: Weakness, recent weight loss Brief History of Present Illness: Kory eHr is a 44 year old male with Pmhx Atrial Fib, Hypertension, anxiety, gastritis presented to the ED with chief complaint of new onset weakness and tremors after a 40 pound weight loss in two months. He reports seeing Dr. Rosen and being diagnosed with gastritis. He woke up with shaking, and unable to walk out of the house due to sudden onset of weakness. Patient was evaluated in the ED and laboratory evaluation significant for sodium 133, T. bili 1.1, direct bili 0.3. CT head and cervical spine report "No acute intracranial abnormality noted. A cervical fracture is not seen." CT CAP Reports "No significant abnormalities displayed" Chest xray reports "No acute abnormality is displayed." Patient was hospitalized for further management. Hospital Course: Diagnosis Generalized tremors Gastritis Weight loss Hypertension Anxiety Patient placed on observation on the medical floor, and treated with supportive measures. Patient home antihypertensives were continued during the hospital stay. Patient's tremors improved and was able to ambulate. Patient reported history of episodic severe hypertension. Given the tremors and episodic severe hypertension, fluid plasma metanephrine was obtained to screen for pheochromocytoma. This is a send out lab and will take about 5 days to result. Case discussed with Dr. Blackburn recommended magnesium supplementation for now. EEG recommended but roving technician is not available and will be done as an outpatient. Patient to follow-up with Dr. Blackburn in the office within 1- 2 weeks. Vital Signs/Physical Exam: Temp Pulse Resp BP Pulse Ox 97.5 F 67 16 137/75 98 01/02/25 16:00 01/02/25 16:00 01/02/25 16:00 01/02/25 16:00 01/02/25 16:00 General: Alert, In no apparent distress, Oriented x3 HEENT: Mucous membr. moist/pink Neck: Supple, JVD not distended Respiratory: Clear to auscultation bilaterally, Normal air movement Cardiovascular: No edema, Normal pulses, Normal S1 S2 Gastrointestinal: Normal bowel sounds, Soft and benign, Non-distended, No tenderness Musculoskeletal: No swelling Integumentary: No rashes, No cyanosis Neurological: Normal speech, Normal strength at 5/5 x4 extr, Other (Generalized tremors) Other Physical/Emotional Findings: Tearful, anxious Laboratory Data at Discharge: WBC 8.00 thou/uL (4.3-10.9) 01/02/25 04:04 Hgb 13.1 g/dL (13.6-17.9) L D 01/02/25 04:04 Hct 36.9 % (39.6-49.0) L 01/02/25 04:04 Plt Count 305 thou/uL (152-406) 01/02/25 04:04 Sodium 138 mEq/L (136-145) D 01/02/25 04:04 Potassium 3.5 mEq/L (3.5-5.1) 01/02/25 04:04 BUN 7 mg/dL (7-18) 01/02/25 04:04 Creatinine 0.94 mg/dL (0.70-1.30) 01/02/25 04:04 Glucose 85 mg/dL (74-106) 01/02/25 04:04 Phosphorus 3.7 mg/dL (2.5-4.9) 01/02/25 04:04 Magnesium 2.4 mg/dL (1.6-2.4) 01/02/25 04:04 Total Bilirubin 1.1 mg/dL (0.2-1.0) H 01/01/25 08:00 AST 21 U/L (15-37) 01/01/25 08:00 ALT 72 U/L (16-61) H 01/01/25 08:00 Alkaline Phosphatase 76 U/L (45-117) 01/01/25 08:00 Triglycerides 113 mg/dL (<150) 01/02/25 04:04 Cholesterol 103 mg/dL (<200) 01/02/25 04:04 HDL Cholesterol 32 mg/dL (40-60) L 01/02/25 04:04 Cholesterol/HDL Ratio 3.22 01/02/25 04:04 Lipase 57 U/L (13-75) 01/01/25 08:00 Home Medications: Losartan/Hydrochlorothiazide [Hyzaar 100-25 Tablet] 1 tab PO DAILY 11/25/24 Ondansetron [Zofran (Odt)*] 4 mg PO Q6HP PRN 01/28/25 Sucralfate [Carafate*] 10 ml PO ACHS #1200 ml 11/26/24 Amitriptyline [Elavil*] 10 mg PO BEDTIME 01/02/25 Ensure High Protein 237 ml PO BID #30 can 01/02/25 Magnesium Oxide [Magnesium] 400 mg PO BID #60 tab 01/02/25 Metoprolol Succinate 25 mg PO DAILY 01/02/25 Omeprazole [Prilosec] 1 cap PO DAILY 01/02/25 New Medications: Ensure High Protein 237 ml PO BID #30 can Magnesium Oxide [Magnesium] 400 mg PO BID #60 tab Physician Discharge Instructions: Please inform your PCP to follow-up your test plan during the hospital stay: Free plasma metanephrine Diet: AHA Activity: Fall precautions Followup: Gabriel Blackburn MD [ASSOCIATE-ACTIVE - CAN ADMIT] - 1-2 Weeks Tanya Samuel FNP [Primary Care Provider] - 1-2 Weeks Time spent managing pt's care (in minutes): 28
[2025-01-02 19:22] VITALS: BMI 25.4
[2025-01-02] MEDS ORDERED: ENSURE HIGH PROTEIN 237 ML CAN PO SCH (21:00)
[2025-01-02] MEDS ORDERED: AMITRIPTYLINE 10 MG TAB PO SCH (21:00)
[2025-01-02] MEDS ORDERED: HOME MED 1 EA UNK (Omeprazole [Prilosec] 40 MG Capsule.Dr) PO SCH (21:00)
[2025-01-03] MEDS ORDERED: LOSARTAN/HCTZ 50-12.5 PO SCH (09:00)
== END 2025-01-02 19:35 | disposition home or self-care (01) ==
LOC: ER 07:30 → ERHOLD 13:12 → 2ND 21:40
PROVIDERS: ADMIT Internal Medicine; ATTEND Internal Medicine
DX: R53.1 Weakness (principal); R25.1 Tremor, unspecified; R63.0 Anorexia; R11.0 Nausea; I10 Essential (primary) hypertension; I48.11 Longstanding persistent atrial fibrillation; F41.9 Anxiety disorder, unspecified; K29.70 Gastritis, unspecified, without bleeding; Z87.891 Personal history of nicotine dependence; Z68.25 Body mass index [BMI] 25.0-25.9, adult; Z11.52 Encounter for screening for COVID-19
CPT/HCPCS: 93005; 93306; 85025 ×2; 80048 ×2; 36415; 83735 ×2; 84100; 80061; 80076; 84443; 81003; 84484 ×3; 84439; 83690; 82533; 83880; 70450; 72125; 71260; 74177; 71045; 97116; 97161; 97530; 99285; 87428; Q9967; J3411 ×2; J3475 ×2; J2470 ×3; J2405; J7030 ×3; G0378 ×4